=== PATIENT | female | born 1955 | race African-American/Black ===

== ENCOUNTER 2017-03-04 20:33 | Inpatient (IN) | payer OTHER, MEDICARE ==
[~2017-03-04] VITALS: Ht 162.6 cm; Wt 147.0 kg
[2017-03-04 20:36] VITALS: BP 201/87; PULSE 114; RESP 16; TEMP 98.9; O2SAT 97
[2017-03-04 23:00] VITALS: BP 187/84; PULSE 94; RESP 16; O2SAT 98
[2017-03-05] MEDS ORDERED: SIMV10TA PO (00:40)
[2017-03-05] MEDS ORDERED: PRED50 PO (00:40)
[2017-03-05] MEDS ORDERED: TRAM50TA PO (00:40)
[2017-03-05] MEDS ORDERED: HYDR12.57 PO (00:40)
[2017-03-05] MEDS ORDERED: CEPH500C PO (00:40)
[2017-03-05] MEDS ORDERED: LISI-515 PO (00:40)
[2017-03-05] MEDS ORDERED: SODIUM CHLORIDE 0.9% FLUSH 10 ML FLUSH IVF PRN (00:45)
[2017-03-05 01:10] VITALS: RESP 18; O2SAT 96
[2017-03-05 01:18] LABS: AUTOMATED NEUTROPHIL # 18.1 TH/MM3 (1.8-7.7); BASOPHIL # 0.1 TH/MM3 (0-0.2); BASOPHIL % 0.2 % (0.0-2.0); HEMATOCRIT 35.5 % (35.0-46.0); HEMO FLAGS DIFF FINAL; LYMPH % 7.2 % (9.0-44.0); LYMPHOCYTE # 1.5 TH/MM3 (1.0-4.8); MEAN CELL VOLUME 84.6 FL (80.0-100.0); MEAN CORPUSCULAR HEMOGLOBIN 27.5 PG (27.0-34.0); MEAN CORPUSCULAR HGB CONC 32.5 % (32.0-36.0); MONO % 6.2 % (0.0-8.0); NEUT % 86.4 % (16.0-70.0); PLATELET COUNT 318 TH/MM3 (150-450); RED BLOOD COUNT 4.19 MIL/MM3 (4.00-5.30); RED CELL DISTRIBUTION WIDTH 14.9 % (11.6-17.2)
[2017-03-05 01:28] LABS: BICARBONATE 26.9 MEQ/L (21.0-32.0); POTASSIUM 3.6 MEQ/L (3.5-5.1)
[2017-03-05] MEDS ORDERED: IOHEXOL 350 MG/ML 10 ML VIAL (for RAD DIAG) IV ONE (02:40)
[2017-03-05 03:00] VITALS: BP 185/82; PULSE 83; RESP 16; O2SAT 99
--- NOTE | 2017-03-05 03:24 | RADRPT ---
EXAM DATE/TIME: 03/05/2017 02:36 This report includes an Addendum and supersedes previous reports for this exam. [facility] COMPARISON: No previous studies available for comparison. INDICATIONS : Sore throat since last . IV CONTRAST: 80 cc Omnipaque 350 (iohexol) IV RADIATION DOSE: 43.63 CTDIvol (mGy) MEDICAL HISTORY : Hypertension. SURGICAL HISTORY : Tubal ligation. ENCOUNTER: Initial ACUITY: 1 week PAIN SCALE: 5/10 LOCATION: throat TECHNIQUE: Volumetric scanning of the neck was performed. Using automated exposure control and adjustment of e mA and/or kV according to patient size, radiation dose was kept as low as reasonably achievable to obtain optimal diagnostic quality images. FINDINGS: There is significant soft tissue swelling involving the right lateral wall of the oropharynx. There i s a focal area of decreased density consistent with a small abscess measuring 2.4 x 1.1 cm. There is narrowing of the lumen of the pharynx due to the extensive soft tissue swelling. Multiple mildly enla rged level II and level III cervical chain lymph nodes noted on the right. Bulky adenopathy not obser talita elsewhere. Major vascular structures are unremarkable. The right carotid artery is quite tortuous with the ICA coursing medially in a retropharyngeal location. Mucosal thickening is seen involving t he ethmoid air cells, sphenoid sinuses, and maxillary sinuses bilaterally. Air-fluid levels are seen within the maxillary sinuses bilaterally. CONCLUSION: 1. Extensive soft tissue swelling involving the right lateral wall of the oropharynx with a tear of p haryngeal abscess measuring 2.4 x 1.1 cm. 2. Note is made of a tortuous ICA on the right which courses in a retropharyngeal location. 3. Reactive lymphadenopathy on the right. 4. Acute bilateral maxillary sinusitis. Suman Laws Jr., MD on March 05, 2017 at 3:16 Board Certified Radiologist. This report was verified electronically. ADDENDUM: There is a typographical error in the #1 impression above. This should read "extensive soft tissue sw elling involving the right lateral wall of the oropharynx with a parapharyngeal abscess measuring 2.4 x 1.1 cm. " Suman Laws Jr., MD on March 05, 2017 at 5:08 Board Certified Radiologist. This report was verified electronically.
[2017-03-05] MEDS ORDERED: ENALAPRILAT 1.25 MG/ML VIAL IV PUSH PRN (04:15)
[2017-03-05] MEDS ORDERED: AMPICILLIN-SULBACTAM INJ 3 GM in SODIUM CHLORIDE 0.9% INJ 100 ML IV ONE (04:15)
[2017-03-05] MEDS ORDERED: ONDANSETRON HCL 4 MG/2 ML VIAL IV PUSH PRN (04:15)
[2017-03-05] MEDS ORDERED: SODIUM CHLOR 0.9% 1000 ML INJ 1,000 ML IV ONE (04:15)
--- NOTE | 2017-03-05 04:16 | PD ---
HPI Chief Complaint: ENT Complaint Time Seen by Provider: 00:17 Travel History International Travel<30 days: No Contact w/Intl Traveler<30days: No Traveled to known affect area: No History of Present Illness HPI Patient 62-year-old female presents emergency department for sore throat difficulty swallowing neck pain for the past 4-5 days. Patient states with her primary care provider was diagnosed with upper respiratory symptoms and indeed she's been having some cough and congestion and was started on Keflex. Patient states she's not been able take Keflex because it so painful to swallow. She denies any fevers denies any nausea vomiting chest pain shortness of breath. States she's never had something like this before. States is gradually getting worse. PFSH Past Medical History High Cholesterol: Yes Diminished Hearing: No Hypertension: Yes Respiratory: Yes (infection) ?: Not LMP: at 44 Menopausal: Yes Tubal Ligation: Yes Social History Alcohol Use: No Tobacco Use: No (never) Substance Use: No Allergies-Medications (Allergen,Severity, Reaction): Uncoded Allergies: solar (Allergy, Unknown, 03/04/17) Reported Meds & Prescriptions Reported Meds & Active Scripts Active Reported Tramadol (Tramadol HCl) 50 Mg Tab 50 Mg PO Q4H PRN Hydrochlorothiazide 12.5 Mg Cap 12.5 Mg PO DAILY Lisinopril 20 Mg Tab 20 Mg PO DAILY Prednisone 50 Mg Tab 50 Mg PO DAILY Simvastatin 10 Mg Tab 10 Mg PO HS Cephalexin 500 Mg Cap 500 Mg PO Q8H Review of Systems Except as stated in HPI: all other systems reviewed are Neg Physical Exam Narrative GENERAL: Well-developed well-nourished no apparent distress SKIN: Focused skin assessment warm/dry. HEAD: Atraumatic. Normocephalic. EYES: Pupils equal and round. No scleral icterus. No injection or drainage. ENT: TMs clear bilaterally, patient does have tenderness to palpation of the lymph nodes on the right anterior part of her neck. Her is 2 finger trismus. Posterior aspect of her oropharynx is not well visualized. No sublingual tenderness. There is no Brandon's crunch, no cellulitis of the anterior neck. Extremely poor dentition NECK: Trachea midline. No JVD. CARDIOVASCULAR: Regular rate and rhythm. No murmur appreciated. No murmurs gallops or rubs. RESPIRATORY: No accessory muscle use. Clear to auscultation. Breath sounds equal bilaterally. GASTROINTESTINAL: Abdomen soft, non-tender, nondistended. Hepatic and splenic margins not palpable. MUSCULOSKELETAL: No obvious deformities. No clubbing. No cyanosis. No edema. NEUROLOGICAL: Awake and alert. No obvious cranial nerve deficits. Motor grossly within normal limits. Normal speech. PSYCHIATRIC: Appropriate mood and affect; insight and judgment normal. Data Data Last Documented VS Vital Signs Date Time Temp Pulse Resp B/P Pulse Ox O2 Delivery O2 Flow Rate FiO2 03/05/17 01:10 18 96 Room Air 03/04/17 23:00 94 187/84 03/04/17 20:36 98.9 Orders Basic Metabolic Panel (Bmp) (03/05/17 00:38) Complete Blood Count With Diff (03/05/17 00:38) Blood Glucose (03/05/17 00:38) Ecg Monitoring (03/05/17 00:38) Iv Access Insert/Monitor (03/05/17 00:38) Oximetry (03/05/17 00:38) Sodium Chloride 0.9% Flush (Ns Flush) (03/05/17 00:45) Thyroid Stimulating Hormone (03/05/17 00:38) Ct Soft Tiss Neck W Iv Cont (03/05/17 ) Iohexol 350 Inj (Omnipaque 350 Inj) (03/05/17 02:40) Lactic Acid (03/05/17 03:40) Ampicillin-Sulbactam Inj (Unasyn Inj) (03/05/17 04:15) Sodium Chlor 0.9% 1000 Ml Inj (Ns 1000 M (03/05/17 04:15) Admit Order (Ed Use Only) (03/05/17 ) Diet Npo (03/05/17 Breakfast) Vital Signs (Adult) SAMANTHA.Q4H (03/05/17 04:13) Ampicillin-Sulbactam Inj (Unasyn Inj) (03/05/17 10:00) Ondansetron Inj (Zofran Inj) (03/05/17 04:15) Consult Ent (03/05/17 ) Complete Blood Count With Diff (03/06/17 06:00) Enalaprilat Inj (Vasotec Inj) (03/05/17 04:15) Sodium Chlor 0.9% 1000 Ml Inj (Ns 1000 M (03/05/17 04:15) Labs Laboratory Tests Test 03/05/17 03/05/17 00:49 03:53 White Blood Count 21.0 TH/MM3 Red Blood Count 4.19 MIL/MM3 Hemoglobin 11.5 GM/DL Hematocrit 35.5 % Mean Corpuscular Volume 84.6 FL Mean Corpuscular Hemoglobin 27.5 PG Mean Corpuscular Hemoglobin 32.5 % Concent Red Cell Distribution Width 14.9 % Platelet Count 318 TH/MM3 Mean Platelet Volume 8.4 FL Neutrophils (%) (Auto) 86.4 % Lymphocytes (%) (Auto) 7.2 % Monocytes (%) (Auto) 6.2 % Eosinophils (%) (Auto) 0.0 % Basophils (%) (Auto) 0.2 % Neutrophils # (Auto) 18.1 TH/MM3 Lymphocytes # (Auto) 1.5 TH/MM3 Monocytes # (Auto) 1.3 TH/MM3 Eosinophils # (Auto) 0.0 TH/MM3 Basophils # (Auto) 0.1 TH/MM3 CBC Comment DIFF FINAL Differential Comment Sodium Level 138 MEQ/L Potassium Level 3.6 MEQ/L Chloride Level 101 MEQ/L Carbon Dioxide Level 26.9 MEQ/L Anion Gap 10 MEQ/L Blood Urea Nitrogen 20 MG/DL Creatinine 0.77 MG/DL Estimat Glomerular Filtration 92 ML/MIN Rate Random Glucose 96 MG/DL Calcium Level 8.9 MG/DL Thyroid Stimulating Hormone 1.250 uIU/ML 3rd Gen Lactic Acid Level 0.6 mmol/L MDM Medical Decision Making Medical Screen Exam Complete: Yes Emergency Medical Condition: Yes Differential Diagnosis Tonsillar abscess, retropharyngeal abscess, URI, bronchitis, dental abscess. Narrative Course Patient was roomed in the emergency Department, notable physical findings are right-sided lymphadenopathy and trismus. Patient does appear to be protecting her airway quite pleasant. She was offered pain medicine several times in the emergency department and declined. Patient with her trismus needs consideration for neck or facial abscess. Last [address] 03/05/17 0000 Signed Impressions: Service Date/Time: February 02:36 - CONCLUSION: 1. Extensive soft tissue swelling involving the right lateral wall of the oropharynx with a tear of pharyngeal abscess measuring 2.4 x 1.1 cm. 2. Note is made of a tortuous ICA on the right which courses in a retropharyngeal location. 3. Reactive lymphadenopathy on the right. 4. Acute bilateral maxillary sinusitis. Suman Laws Jr., MD ADDENDUM: There is a typographical error in the #1 impression above. This should read extensive soft tissue swelling involving the right lateral wall of the oropharynx with a parapharyngeal abscess measuring 2.4 x 1.1 cm. Suman Laws Jr., MD Patient is tachycardic and does have an elevated white blood cell count 22,000 diagnostic for sepsis. There is no evidence of severe sepsis or septic shock. No indication therefore for aggressive fluid rehydration. She was given Unasyn in the emergency department. She will be admitted to Dr. Moss. Patient was discussed with Dr. Swartz. She is to remain nothing by mouth for now. Blood cultures were drawn and set aside prior to administration of antibiotics and will be sent off. Patient continues to protect her airway in the emergency department and appears nontoxic. Diagnosis Primary Impression: Sepsis Qualified Code: A41.9 - Sepsis, due to unspecified organism Additional Impression: Retropharyngeal abscess Admitting Information Admitting Physician Requests: Admit Condition: Stable Jos Wall MD Mar 05, 2017 04:15
[2017-03-05] MEDS: SODIUM CHLOR 0.9% 1000 ML INJ 1,000 ML IV SCH ×2 (05:16→14:15)
--- NOTE | 2017-03-05 05:35 | HHI.HP ---
[facility] Service [facility] Primary Care Physician Non-Staff Admission Diagnosis Sepsis, Retropharyngeal Abscess Diagnoses: (1) Sepsis Diagnosis: Principal (2) Retropharyngeal abscess Diagnosis: Principal Chief Complaint: pain to the right face Travel History International Travel<30 Days: No Contact w/Intl Traveler <30 Da: No Traveled to Known Affected Are: No History of Present Illness patient is a 62 y/o female who presented to ER with pain to the right face. she says that she's got the pain since last week. she then started to have some sore throat,and cough along with some pain to her right ear. she started to notice some swelling of the right face. she was seen by her PCP few days ago and prescribed antibiotic and prednisone however due to difficulty swallowing she just could take a few pills on Thursday and Thursday. she had some fever and chills at home. due to worsening pain and swelling she decided to come to ER. she says that she hasn't been able to take her home meds because of difficulty swallowing. Review of Systems Constitutional: COMPLAINS OF: Fever, Chills, DENIES: Weight loss, Night Sweats Eyes: DENIES: Blurred vision, Diplopia, Vision loss, Double Vision Ears, nose, mouth, throat: COMPLAINS OF: Throat pain, Ear Pain, DENIES: Tinnitus, Vertigo, Epistaxis Respiratory: DENIES: Apneas, Cough, Snoring, Wheezing, Hemoptysis, Sputum production, Shortness of breath Cardiovascular: DENIES: Chest pain, Palpitations, Syncope, Dyspnea on Exertion , PND, Lower Extremity Edema, Orthopnea, Claudication Gastrointestinal: COMPLAINS OF: Difficulty Swallowing, DENIES: Abdominal pain , Black stools, Bloody stools, Constipation, Diarrhea, Nausea, Vomiting, Anorexia Genitourinary: DENIES: Urinary frequency, Urgency, Hematuria, Dysuria Musculoskeletal: DENIES: Joint pain, Muscle aches, Stiffness, Joint Swelling Integumentary: DENIES: Rash Neurologic: DENIES: Abnormal gait, Headache, Localized weakness, Paresthesias, Seizures, Speech Problems, Tremor, Poor Balance Psychiatric: DENIES: Anxiety, Confusion, Mood changes, Depression, Hallucinations, Agitation, Suicidal Ideation, Homicidal Ideation, Delusions Past Family Social History Past Medical History hypertension dyslipidemia Past Surgical History knee surgery tubal ligation Reported Medications Tramadol (Tramadol HCl) 50 Mg Tab 50 Mg PO Q4H PRN Hydrochlorothiazide 12.5 Mg Cap 12.5 Mg PO DAILY Lisinopril 20 Mg Tab 20 Mg PO DAILY Prednisone 50 Mg Tab 50 Mg PO DAILY Simvastatin 10 Mg Tab 10 Mg PO HS Cephalexin 500 Mg Cap 500 Mg PO Q8H Allergies: Uncoded Allergies: solar (Allergy, Unknown, 03/04/17) Active Ordered Medications Current Medications Sodium Chloride (NS Flush) 2 ml UNSCH PRN IVF FLUSH AFTER USING IV ACCESS Last administered on 03/05/17 04:25; Start 03/05/17 at 00:45 Iohexol 80 ml 80 ml STK-MED ONCE IV Last administered on 03/05/17 02:40; Start 03/05/17 at 02:40; Stop 03/05/17 at 02:41; Status DC Ampicillin Sodium/ Sulbactam Sodium 3 gm/Sodium Chloride 100 ml @ 200 mls/hr ONCE ONCE IV Last administered on 03/05/17 04:24; Start 03/05/17 at 04:15; Stop 03/05/17 at 04:44; Status DC Sodium Chloride 1,000 ml @ 999 mls/hr BOLUS ONCE IV Last administered on 04:30; Start 03/05/17 at 04:15; Stop 03/05/17 at 05:15; Status DC Ampicillin Sodium/ Sulbactam Sodium/ Sodium Chloride (Unasyn Inj/NS Inj) 100 ml @ 200 mls/hr Q6H IV ; Start 03/05/17 at 10:00 Ondansetron HCl (Zofran Inj) 4 mg Q8HR PRN IV PUSH NAUSEA; Start 03/05/17 at 04: 15 Enalaprilat 1.25 mg 1.25 mg Q8H PRN IV PUSH SBP> OR = 180, DBP> OR = 100; Start 03/05/17 at 04:15 Sodium Chloride (NS 1000 ml Inj) 1,000 ml @ 100 mls/hr Q10H IV Last administered on 03/05/17 05:16; Start 03/05/17 at 04:15 Family History not relevant to this admission. Social History no smoking or drinking. Physical Exam Vital Signs Vital Signs Date Time Temp Pulse Resp B/P Pulse Ox O2 Delivery O2 Flow Rate FiO2 03/05/17 01:10 18 96 Room Air 03/04/17 23:00 94 16 187/84 98 Room Air 03/04/17 20:36 98.9 114 16 201/87 97 Room Air Physical Exam GENERAL: This is a well-nourished, well-developed patient, in no apparent distress. SKIN: No rashes, ecchymoses or lesions. Cool and dry. HEAD: swelling and tenderness over the right face EYES: Pupils equal round and reactive. Extraocular motions intact. No scleral icterus. No injection or drainage. ENT: Nose without bleeding, purulent drainage or septal hematoma. Throat without erythema, tonsillar hypertrophy or exudate. Uvula midline. Airway patent. NECK: Trachea midline. No JVD or lymphadenopathy. Supple, nontender, no meningeal signs. CARDIOVASCULAR: Regular rate and rhythm without murmurs, gallops, or rubs. RESPIRATORY: Clear to auscultation. Breath sounds equal bilaterally. No wheezes , rales, or rhonchi. GASTROINTESTINAL: Abdomen soft, non-tender, nondistended. No hepato-splenomegaly , or palpable masses. No guarding. MUSCULOSKELETAL: Extremities without clubbing, cyanosis, or edema. No joint tenderness, effusion, or edema noted. No calf tenderness. Negative Homans sign bilaterally. NEUROLOGICAL: Awake and alert. Cranial nerves II through XII intact. Motor and sensory grossly within normal limits. Five out of 5 muscle strength in all muscle groups. Normal speech. Laboratory Laboratory Tests Test 03/05/17 03/05/17 00:49 03:53 White Blood Count 21.0 Red Blood Count 4.19 Hemoglobin 11.5 Hematocrit 35.5 Mean Corpuscular Volume 84.6 Mean Corpuscular Hemoglobin 27.5 Mean Corpuscular Hemoglobin 32.5 Concent Red Cell Distribution Width 14.9 Platelet Count 318 Mean Platelet Volume 8.4 Neutrophils (%) (Auto) 86.4 Lymphocytes (%) (Auto) 7.2 Monocytes (%) (Auto) 6.2 Eosinophils (%) (Auto) 0.0 Basophils (%) (Auto) 0.2 Neutrophils # (Auto) 18.1 Lymphocytes # (Auto) 1.5 Monocytes # (Auto) 1.3 Eosinophils # (Auto) 0.0 Basophils # (Auto) 0.1 CBC Comment DIFF FINAL Differential Comment Sodium Level 138 Potassium Level 3.6 Chloride Level 101 Carbon Dioxide Level 26.9 Anion Gap 10 Blood Urea Nitrogen 20 Creatinine 0.77 Estimat Glomerular Filtration 92 Rate Random Glucose 96 Calcium Level 8.9 Thyroid Stimulating Hormone 1.250 3rd Gen Lactic Acid Level 0.6 Result Diagram: 03/05/17 0049 03/05/17 0049 Imaging Last Impressions Neck CT 03/05/17 0000 Signed Impressions: Service Date/Time: February 02:36 - CONCLUSION: 1. Extensive soft tissue swelling involving the right lateral wall of the oropharynx with a tear of pharyngeal abscess measuring 2.4 x 1.1 cm. 2. Note is made of a tortuous ICA on the right which courses in a retropharyngeal location. 3. Reactive lymphadenopathy on the right. 4. Acute bilateral maxillary sinusitis. Suman Laws Jr., MD ADDENDUM: There is a typographical error in the #1 impression above. This should read extensive soft tissue swelling involving the right lateral wall of the oropharynx with a parapharyngeal abscess measuring 2.4 x 1.1 cm. Suman Laws Jr., MD Assessment and Plan Assessment and Plan A/P - sepsis ( leukocytosis/ tachycardia ) due to Parapharyngeal abscess NPO for now and continue IV fluid-continue IV antibiotic and will consult ENT -hypertension; vasotec prn for now -dyslipidemia; resume home meds when able to take po -DVT prophylaxis with SCD's Discussed Condition With ER physician and the patient. Physician Certification 2 Midnight Certification Type: Admission for Inpatient Services Order for Inpatient Services The services are ordered in accordance with Medicare regulations or non- Medicare payer requirements, as applicable. In the case of services not specified as inpatient-only, they are appropriately provided as inpatient services in accordance with the 2-midnight benchmark. Estimated LOS (days): 2 days is the estimated time the patient will need to remain in the hospital, assuming treatment plan goals are met and no additional complications. Post-Hospital Plan: Home Problem Qualifiers (1) Sepsis: Qualified Code: A41.9 - Sepsis, due to unspecified organism Tom James MD Mar 05, 2017 05:35
[2017-03-05 06:00] VITALS: BP 176/83; PULSE 78; RESP 16; O2SAT 97
[2017-03-05] MEDS ORDERED: DEXAMETHASONE SOD PHOS 20 MG/5 ML VIAL IV PUSH ONE (06:30)
--- NOTE | 2017-03-05 07:22 | MB ---
cc: LOU RÍOS M.D. DATE OF CONSULTATION 03/05/2017 REASON FOR ENT CONSULTATION Right parapharyngeal abscess HISTORY OF PRESENT ILLNESS Rick Wilson is a 62-year-old woman in fairly good health. She reports a five-day history of progressive pain in her right throat, neck and face. She was seen by her primary care doctor and diagnosed with an upper respiratory infection and begun on prednisone and Keflex. However, she states due to the pain in the throat, she has been unable to take her medications including a blood pressure medication for the last three or four days. She presented to the emergency room late in the evening on March 04 complaining of the severe pain in the right throat and neck. She has no airway compromise, but she is unable to swallow. She has difficulty opening her mouth. PAST MEDICAL HISTORY Significant for: 1. Hypertension 2. High cholesterol PAST SURGICAL HISTORY She has had: 1. Knee surgery 2. Tubal ligation PREHOSPITAL MEDICATIONS Include: 1. Tramadol 2. Hydrochlorothiazide 3. Lisinopril 4. Prednisone 5. Simvastatin 6. Keflex ALLERGIES NISOLDIPINE PHYSICAL EXAM On examination, she is alert and cooperative. VITAL SIGNS: Her temperature is 99 degrees, pulse 114, respirations 16, BP 201/87, O2 sat 97% on room air. HEAD, EYES, NOSE, AND THROAT: Head is normocephalic and atraumatic. Face is normal. There is no edema. Oral cavity, teeth appear to be in fair condition. Tongue is normal. Unable to show her oropharynx beyond just the soft palate which shows marked swelling and erythema on the right side. Tonsils are not visible. NECK: Very tender in the right submandibular triangle and below the angle of the mandible, but there is no fluctuance. Range of motion is decreased. She has difficulty of rotation and flexion of her neck. EARS: Normal auricles, ear canals and tympanic membranes. LABORATORY White count 21,000. CT scan reveals a loculated abscess developing in the area of the right tonsil fossa extending down the right pharyngeal wall toward the pyriform sinus. There is compromise with narrowing of the airway. ASSESSMENT Right peritonsillar parapharyngeal abscess. PLAN Discussed these findings with the patient. Recommend we proceed as soon as practical to the operating room to drain this loculated abscess under general anesthesia. She is agreement and consent has been signed. She is n.p.o. MD VIBHA Whalen/SOPHY /6:49 AM /7:08 AM
[2017-03-05] MEDS ORDERED: MICROFIBRILLAR COLLAGEN HEMOSTAT 1 GM PKT ONE (08:00)
[2017-03-05] MEDS ORDERED: OXYMETAZOLINE HCL 0.05% 15 ML NASAL SPRAY ONE (08:00)
[2017-03-05] MEDS ORDERED: ACETAMINOPHEN 1000 MG/100 ML VIAL IV ONE (08:20)
[2017-03-05] MEDS ORDERED: fentaNYL CITRATE 250 MCG/5 ML AMP ONE (08:20)
[2017-03-05] MEDS ORDERED: MIDAZOLAM HCL 2 MG/2 ML VIAL ONE (08:20)
[2017-03-05] MEDS ORDERED: DEXAMETHASONE SOD PHOS 4 MG/ML VIAL ONE (08:20)
[2017-03-05] MEDS ORDERED: DICLOFENAC SODIUM 37.5 MG/ML VIAL IV PUSH ONE (08:20)
[2017-03-05] MEDS ORDERED: FAMOTIDINE 20 MG/2 ML VIAL ONE (08:20)
[2017-03-05] MEDS ORDERED: cefTRIAXone 1,000 MG/NS 100 ML IV ONE ×2 (09:15)
[2017-03-05] MEDS ORDERED: *RESP: ALBUTEROL 2.5 MG/3 ML NEB (PRN) PERIprocedural Use ONLY NEB ONE (09:27)
[2017-03-05] MEDS ORDERED: AMPICILLIN-SULBACTAM INJ 3 GM in SODIUM CHLORIDE 0.9% INJ 100 ML IV SCH (10:00)
[2017-03-05] MEDS: LACTATED RINGER'S 1000 ML INJ 1,000 ML IV SCH ×2 (10:20→22:25)
[2017-03-05] MEDS ORDERED: DO NOT ADM ANY ANTICOAGULANT DRUGS PRN (10:45)
[2017-03-05] MEDS: DEXAMETHASONE SOD PHOS 4 MG/ML VIAL IV SCH ×2 (11:58→17:56)
[2017-03-05] MEDS ORDERED: ONDANSETRON HCL 4 MG/2 ML VIAL IV PUSH ONE (12:00)
[2017-03-05] MEDS ORDERED: NEOSTIGMINE 3 MG/3 ML SYR IV ONE (12:00)
[2017-03-05] MEDS ORDERED: PROPOFOL 200 MG/20 ML AMP IV ONE (12:00)
[2017-03-05] MEDS: CLINDAMYCIN INJ 900 MG in SODIUM CHLORIDE 0.9% INJ 100 ML IV SCH ×2 (12:02→22:24)
--- NOTE | 2017-03-05 15:26 | HHI.PR ---
Subjective Remarks patient see post op in PACU waiting for a room. She has no complaints. Denied any pain or difficulty swallowing. Objective Vitals Vital Signs Date Time Temp Pulse Resp B/P Pulse Ox O2 Delivery O2 Flow Rate FiO2 03/05/17 15:00 85 17 131/75 99 Nasal Cannula 3 03/05/17 14:00 82 15 111/54 98 Nasal Cannula 3 03/05/17 13:00 90 16 127/66 99 Nasal Cannula 3 03/05/17 12:00 81 15 112/63 99 Nasal Cannula 3 03/05/17 11:30 85 14 121/62 99 Humidified 03/05/17 11:00 89 16 119/64 98 Humidified 03/05/17 10:30 85 14 109/64 97 Humidified 03/05/17 10:15 82 16 110/57 97 Humidified 03/05/17 10:00 87 13 128/67 95 Humidified 03/05/17 09:45 91 16 127/87 93 Humidified 03/05/17 09:30 90 14 137/81 93 Simple Mask 8 03/05/17 09:25 97.3 87 15 168/52 98 Simple Mask 8 03/05/17 06:00 78 16 176/83 97 Room Air 03/05/17 03:00 83 16 185/82 99 Room Air 03/05/17 01:10 18 96 Room Air 03/04/17 23:00 94 16 187/84 98 Room Air 03/04/17 20:36 98.9 114 16 201/87 97 Room Air I/O 03/04/17 03/04/17 03/04/17 03/05/17 03/05/17 03/05/17 07:00 15:00 23:00 07:00 15:00 23:00 Intake Total 600 ml 25 ml Output Total 25 ml 200 ml Balance 575 ml -175 ml Intake Oral 25 ml Other 600 ml Output Urine Total 200 ml Estimated Blood Loss 25 ml Result Diagram: 03/05/17 0049 03/05/17 0049 Imaging Last Impressions Neck CT 03/05/17 0000 Signed Impressions: Service Date/Time: February 02:36 - CONCLUSION: 1. Extensive soft tissue swelling involving the right lateral wall of the oropharynx with a tear of pharyngeal abscess measuring 2.4 x 1.1 cm. 2. Note is made of a tortuous ICA on the right which courses in a retropharyngeal location. 3. Reactive lymphadenopathy on the right. 4. Acute bilateral maxillary sinusitis. Suman Laws Jr., MD ADDENDUM: There is a typographical error in the #1 impression above. This should read extensive soft tissue swelling involving the right lateral wall of the oropharynx with a parapharyngeal abscess measuring 2.4 x 1.1 cm. Suman Laws Jr., MD Objective Remarks GENERAL: in NAD SKIN: Warm and dry. HEAD: Normocephalic. EYES: No scleral icterus. No injection or drainage. NECK: Supple, trachea midline. No JVD or lymphadenopathy. CARDIOVASCULAR: Regular rate and rhythm without murmurs, gallops, or rubs. RESPIRATORY: Breath sounds equal bilaterally. No accessory muscle use. GASTROINTESTINAL: Abdomen soft, non-tender, nondistended. MUSCULOSKELETAL: No cyanosis, or edema. BACK: Nontender without obvious deformity. No CVA tenderness. Medications and IVs Current Medications Sodium Chloride (NS Flush) 2 ml UNSCH PRN IVF FLUSH AFTER USING IV ACCESS Last administered on 03/05/17 04:25; Start 03/05/17 at 00:45 Iohexol 80 ml 80 ml STK-MED ONCE IV Last administered on 03/05/17 02:40; Start 03/05/17 at 02:40; Stop 03/05/17 at 02:41; Status DC Ampicillin Sodium/ Sulbactam Sodium 3 gm/Sodium Chloride 100 ml @ 200 mls/hr ONCE ONCE IV Last administered on 03/05/17 04:24; Start 03/05/17 at 04:15; Stop 03/05/17 at 04:44; Status DC Sodium Chloride 1,000 ml @ 999 mls/hr BOLUS ONCE IV Last administered on 04:30; Start 03/05/17 at 04:15; Stop 03/05/17 at 05:15; Status DC Ampicillin Sodium/ Sulbactam Sodium/ Sodium Chloride (Unasyn Inj/NS Inj) 100 ml @ 200 mls/hr Q6H IV ; Start 03/05/17 at 10:00; Stop 03/05/17 at 10:20; Status DC Ondansetron HCl (Zofran Inj) 4 mg Q8HR PRN IV PUSH NAUSEA; Start 03/05/17 at 04: 15 Enalaprilat 1.25 mg 1.25 mg Q8H PRN IV PUSH SBP> OR = 180, DBP> OR = 100; Start 03/05/17 at 04:15 Sodium Chloride (NS 1000 ml Inj) 1,000 ml @ 100 mls/hr Q10H IV Last administered on 03/05/17 05:16; Start 03/05/17 at 04:15 Dexamethasone Sodium Phosphate (Decadron Inj) 10 mg ONCE ONCE IV PUSH Last administered on 03/05/17 06:36; Start 03/05/17 at 06:30; Stop 03/05/17 at 06:31; Status DC Microfibriller Collagen Hemostat (Avitene Powder Pack) 1 gm STK-MED ONCE .ROUTE ; Start 03/05/17 at 08:00; Stop 03/05/17 at 08:12; Status DC Oxymetazoline HCl (Afrin 0.05% Wes [place]) 30 spray STK-MED ONCE .ROUTE ; Start 03/05/17 at 08:00; Stop 03/05/17 at 08:12; Status DC Acetaminophen (Ofirmev Inj) 1,000 mg STK-MED ONCE IV ; Start 03/05/17 at 08:20; Stop 03/05/17 at 08:21; Status DC Midazolam HCl (Versed Inj) 2 mg STK-MED ONCE .ROUTE ; Start 03/05/17 at 08:20; Stop 03/05/17 at 08:22; Status DC Fentanyl Citrate (fentaNYL INJ) 250 mcg STK-MED ONCE .ROUTE ; Start 03/05/17 at 08:20; Stop 03/05/17 at 08:22; Status DC Diclofenac Sodium (Dyloject Inj) 37.5 mg STK-MED ONCE IV PUSH ; Start 03/05/17 at 08:20; Stop 03/05/17 at 08:22; Status DC Dexamethasone Sodium Phosphate (Decadron Inj) 4 mg STK-MED ONCE .ROUTE ; Start 03/05/17 at 08:20; Stop 03/05/17 at 08:22; Status DC Famotidine 20 mg 20 mg STK-MED ONCE .ROUTE ; Start 03/05/17 at 08:20; Stop at 08:22; Status DC Ceftriaxone Sodium/Sodium Chloride (Rocephin Inj/NS Inj) 100 ml @ 200 mls/hr NOW ONCE IV Last administered on 03/05/17 09:15; Start 03/05/17 at 09:15; Stop 03/05/17 at 09:44; Status DC Albuterol Sulfate 2.5 mg 2.5 mg STK-MED ONCE NEB Last administered on 03/05/17 09:27; Start 03/05/17 at 09:27; Stop 03/05/17 at 09:28; Status DC Lactated Ringer's 1,000 ml @ 80 mls/hr [id number] IV Last administered on 10:20; Start 03/05/17 at 10:00 Ceftriaxone Sodium/Sodium Chloride (Rocephin Inj/NS Inj) 100 ml @ 200 mls/hr Q24H IV ; Start 03/05/17 at 21:00 Acetaminophen/ Hydrocodone Bitart (Hycet 325-7.5 Mg Liq) 15 ml Q4H PRN PO PAIN ; Start 03/05/17 at 09:45 Dexamethasone Sodium Phosphate 4 mg 4 mg Q6H IV Last administered on 03/05/17 11:58; Start 03/05/17 at 12:00 Clindamycin Phosphate/Sodium Chloride (Cleocin Inj/NS Inj) 106 ml @ 212 mls/hr Q8H IV Last administered on 03/05/17 12:02; Start 03/05/17 at 12:00 Miscellaneous Information ALL NURSING DEPARTME... UNSCH PRN .XX SEE LABEL COMMENTS; Start 03/05/17 at 10:45; Stop 03/06/17 at 10:44 A/P Problem List: (1) Sepsis ICD Code: A41.9 Status: Acute (2) Retropharyngeal abscess ICD Code: J39.0 Status: Acute Assessment and Plan Sepsis -with leukocytosis/ tachycardia due to Parapharyngeal abscess found on imaging. - s/p drain of loculated abscess by ENT hypertension -seemed to resolved so maybe due to pain. -on vasotec prn for now. Dyslipidemia - resume home meds when able to take po -DVT prophylaxis with SCD's Problem Qualifiers (1) Sepsis: Qualified Code: A41.9 - Sepsis, due to unspecified organism Reyna Enamorado MD Mar 05, 2017 15:26
[2017-03-05 16:00] VITALS: BP 136/63; PULSE 90; RESP 20; TEMP 96.1; O2SAT 95
[2017-03-05 17:20] VITALS: O2SAT 95
[2017-03-05 20:00] VITALS: BP 138/65; PULSE 71; RESP 20; TEMP 98.3; O2SAT 94
[2017-03-05] MEDS: cefTRIAXone 1,000 MG/NS 100 ML IV SCH ×2 (22:25)
[2017-03-06] VITALS: BP 137/71; PULSE 72; RESP 20; TEMP 96.6; O2SAT 98
[2017-03-06] MEDS: DEXAMETHASONE SOD PHOS 4 MG/ML VIAL IV SCH ×3 (00:14→11:10)
[2017-03-06] MEDS: SODIUM CHLOR 0.9% 1000 ML INJ 1,000 ML IV SCH ×2 (00:15→11:08)
[2017-03-06] MEDS: CLINDAMYCIN INJ 900 MG in SODIUM CHLORIDE 0.9% INJ 100 ML IV SCH ×3 (04:41→20:37)
[2017-03-06 05:29] VITALS: BP 139/71; PULSE 80; RESP 18; TEMP 96.7; O2SAT 98
[2017-03-06 06:56] LABS: AUTOMATED NEUTROPHIL # 13.4 TH/MM3 (1.8-7.7); BASOPHIL % 0.2 % (0.0-2.0); HEMATOCRIT 29.2 % (35.0-46.0); HEMO FLAGS DIFF FINAL; LYMPH % 6.7 % (9.0-44.0); MEAN CELL VOLUME 84.6 FL (80.0-100.0); MEAN CORPUSCULAR HEMOGLOBIN 27.7 PG (27.0-34.0); MEAN CORPUSCULAR HGB CONC 32.7 % (32.0-36.0); MONO % 3.6 % (0.0-8.0); NEUT % 89.5 % (16.0-70.0); PLATELET COUNT 335 TH/MM3 (150-450); RED BLOOD COUNT 3.45 MIL/MM3 (4.00-5.30); WHITE BLOOD COUNT 14.9 TH/MM3 (4.0-11.0)
[2017-03-06 08:00] VITALS: BP 137/60; PULSE 83; RESP 21; TEMP 96.6; O2SAT 98
[2017-03-06] MEDS: LACTATED RINGER'S 1000 ML INJ 1,000 ML IV SCH ×2 (11:00→20:46)
[2017-03-06] MEDS: ACETAMINOPHEN 325MG/HYDROcodone 7.5MG/15ML UDC PO PRN ×2 (11:10→20:38)
[2017-03-06 13:15] VITALS: O2SAT 98
[2017-03-06 16:00] VITALS: BP 114/61; PULSE 79; RESP 18; TEMP 95.7; O2SAT 96
--- NOTE | 2017-03-06 16:21 | HHI.PR ---
Subjective Remarks Follow-up with retropharyngeal abscess Patient stated that she has more swelling today and that this is causing the headache. Otherwise she has no other complaints. She remains afebrile. Objective Vitals Vital Signs Date Time Temp Pulse Resp B/P Pulse Ox O2 Delivery O2 Flow Rate FiO2 03/06/17 13:15 98 21 03/06/17 08:00 96.6 83 21 137/60 98 03/06/17 05:29 96.7 80 18 139/71 98 03/06/17 00:00 96.6 72 20 137/71 98 03/05/17 20:00 98.3 71 20 138/65 94 03/05/17 17:20 95 21 I/O 03/05/17 03/05/17 03/05/17 03/06/17 03/06/17 03/06/17 07:00 15:00 23:00 07:00 15:00 23:00 Intake Total 600 ml 25 ml 500 ml Output Total 25 ml 200 ml 0 ml Balance 575 ml -175 ml 500 ml 0 ml Intake Oral 25 ml IV Total 500 ml Other 600 ml Output Urine Total 200 ml Stool Total 0 ml Estimated Blood Loss 25 ml # Voids 1 2 # Bowel Movements 0 Result Diagram: 03/06/1737 03/06/17536 Objective Remarks GENERAL: in NAD SKIN: Warm and dry. HEAD: Right-sided facial swelling. No erythema noted. EYES: No scleral icterus. No injection or drainage. NECK: Supple, trachea midline. No JVD or lymphadenopathy. CARDIOVASCULAR: Regular rate and rhythm without murmurs, gallops, or rubs. RESPIRATORY: Breath sounds equal bilaterally. No accessory muscle use. GASTROINTESTINAL: Abdomen soft, non-tender, nondistended. MUSCULOSKELETAL: No cyanosis, or edema. BACK: Nontender without obvious deformity. No CVA tenderness. Medications and IVs Current Medications Sodium Chloride (NS Flush) 2 ml UNSCH PRN IVF FLUSH AFTER USING IV ACCESS Last administered on 03/05/17 04:25; Start 03/05/17 at 00:45 Iohexol 80 ml 80 ml STK-MED ONCE IV Last administered on 03/05/17 02:40; Start 03/05/17 at 02:40; Stop 03/05/17 at 02:41; Status DC Ampicillin Sodium/ Sulbactam Sodium 3 gm/Sodium Chloride 100 ml @ 200 mls/hr ONCE ONCE IV Last administered on 03/05/17 04:24; Start 03/05/17 at 04:15; Stop 03/05/17 at 04:44; Status DC Sodium Chloride 1,000 ml @ 999 mls/hr BOLUS ONCE IV Last administered on 04:30; Start 03/05/17 at 04:15; Stop 03/05/17 at 05:15; Status DC Ampicillin Sodium/ Sulbactam Sodium/ Sodium Chloride (Unasyn Inj/NS Inj) 100 ml @ 200 mls/hr Q6H IV ; Start 03/05/17 at 10:00; Stop 03/05/17 at 10:20; Status DC Ondansetron HCl (Zofran Inj) 4 mg Q8HR PRN IV PUSH NAUSEA; Start 03/05/17 at 04: 15 Enalaprilat 1.25 mg 1.25 mg Q8H PRN IV PUSH SBP> OR = 180, DBP> OR = 100; Start 03/05/17 at 04:15 Sodium Chloride (NS 1000 ml Inj) 1,000 ml @ 100 mls/hr Q10H IV Last administered on 03/06/17 11:08; Start 03/05/17 at 04:15 Dexamethasone Sodium Phosphate (Decadron Inj) 10 mg ONCE ONCE IV PUSH Last administered on 03/05/17 06:36; Start 03/05/17 at 06:30; Stop 03/05/17 at 06:31; Status DC Microfibriller Collagen Hemostat (Avitene Powder Pack) 1 gm STK-MED ONCE .ROUTE ; Start 03/05/17 at 08:00; Stop 03/05/17 at 08:12; Status DC Oxymetazoline HCl (Afrin 0.05% Wes [place]) 30 spray STK-MED ONCE .ROUTE ; Start 03/05/17 at 08:00; Stop 03/05/17 at 08:12; Status DC Acetaminophen (Ofirmev Inj) 1,000 mg STK-MED ONCE IV ; Start 03/05/17 at 08:20; Stop 03/05/17 at 08:21; Status DC Midazolam HCl (Versed Inj) 2 mg STK-MED ONCE .ROUTE ; Start 03/05/17 at 08:20; Stop 03/05/17 at 08:22; Status DC Fentanyl Citrate (fentaNYL INJ) 250 mcg STK-MED ONCE .ROUTE ; Start 03/05/17 at 08:20; Stop 03/05/17 at 08:22; Status DC Diclofenac Sodium (Dyloject Inj) 37.5 mg STK-MED ONCE IV PUSH ; Start 03/05/17 at 08:20; Stop 03/05/17 at 08:22; Status DC Dexamethasone Sodium Phosphate (Decadron Inj) 4 mg STK-MED ONCE .ROUTE ; Start 03/05/17 at 08:20; Stop 03/05/17 at 08:22; Status DC Famotidine 20 mg 20 mg STK-MED ONCE .ROUTE ; Start 03/05/17 at 08:20; Stop at 08:22; Status DC Ceftriaxone Sodium/Sodium Chloride (Rocephin Inj/NS Inj) 100 ml @ 200 mls/hr NOW ONCE IV Last administered on 03/05/17 09:15; Start 03/05/17 at 09:15; Stop 03/05/17 at 09:44; Status DC Albuterol Sulfate 2.5 mg 2.5 mg STK-MED ONCE NEB Last administered on 03/05/17 09:27; Start 03/05/17 at 09:27; Stop 03/05/17 at 09:28; Status DC Lactated Ringer's 1,000 ml @ 80 mls/hr [id number] IV Last administered on 10:20; Start 03/05/17 at 10:00 Ceftriaxone Sodium/Sodium Chloride (Rocephin Inj/NS Inj) 100 ml @ 200 mls/hr Q24H IV Last administered on 03/05/17 22:25; Start 03/05/17 at 21:00 Acetaminophen/ Hydrocodone Bitart (Hycet 325-7.5 Mg Liq) 15 ml Q4H PRN PO PAIN Last administered on 03/06/17 11:10; Start 03/05/17 at 09:45 Dexamethasone Sodium Phosphate 4 mg 4 mg Q6H IV Last administered on 03/06/17 11:10; Start 03/05/17 at 12:00; Stop 03/06/17 at 12:39; Status DC Clindamycin Phosphate/Sodium Chloride (Cleocin Inj/NS Inj) 106 ml @ 212 mls/hr Q8H IV Last administered on 03/06/17t 11:09; Start 03/05/17 at 12:00 Miscellaneous Information ALL NURSING DEPARTME... UNSCH PRN .XX SEE LABEL COMMENTS; Start 03/05/17 at 10:45; Stop 03/06/17 at 10:44; Status DC A/P Problem List: (1) Sepsis ICD Code: A41.9 Status: Acute (2) Retropharyngeal abscess ICD Code: J39.0 Status: Acute Assessment and Plan Sepsis -I resolved. -with leukocytosis/ tachycardia due to Parapharyngeal abscess found on imaging. - s/p drain of loculated abscess by ENT on 03/05/2017 -Patient was initially on Unasyn but is now on Rocephin per ENT. Parapharyngeal abscess -See treatment as above. hypertension -seemed to resolved so maybe due to pain. -on vasotec prn for now. Dyslipidemia - Continue home meds when able to take po -DVT prophylaxis with SCD's Discharge Planning Patient continues to require IV antibiotics per ENT. Once cleared by ENT patient to be discharge. Problem Qualifiers (1) Sepsis: Qualified Code: A41.9 - Sepsis, due to unspecified organism Reyna Enamorado MD Mar 06, 2017 16:21
[2017-03-06 20:00] VITALS: BP 156/84; PULSE 83; RESP 20; TEMP 97.1; O2SAT 100
[2017-03-06] MEDS: cefTRIAXone 1,000 MG/NS 100 ML IV SCH ×2 (20:37)
[2017-03-07] VITALS (7 sets, daily range): BP systolic 114–152; BP diastolic 55–77; PULSE 66–83; RESP 18–24; TEMP 96.4–97.7; O2SAT 94–98
[2017-03-07] MEDS: CLINDAMYCIN INJ 900 MG in SODIUM CHLORIDE 0.9% INJ 100 ML IV SCH ×3 (04:47→20:35)
[2017-03-07] MEDS: ACETAMINOPHEN 325MG/HYDROcodone 7.5MG/15ML UDC PO PRN ×3 (11:25→20:38)
[2017-03-07] MEDS: LACTATED RINGER'S 1000 ML INJ 1,000 ML IV SCH (11:29)
--- NOTE | 2017-03-07 15:41 | HHI.PR ---
Subjective Remarks f/u for infection. patient stated she still has right facial swelling. Tolerated clear liquid diet. she stated pain medication helped controlled. pain. She stated Dr. Swartz saw her in the morning and stated possibility she might need more drainage. she remains afebrile. Objective Vitals Vital Signs Date Time Temp Pulse Resp B/P Pulse Ox O2 Delivery O2 Flow Rate FiO2 03/07/17 12:32 96.4 73 18 126/61 95 03/07/17 08:00 97.5 82 20 148/67 98 03/07/17 04:00 96.8 77 20 119/66 96 03/07/17 00:00 97.0 66 20 152/77 96 03/06/17 21:38 18 03/06/17 20:00 97.1 83 20 156/84 100 03/06/17 19:10 21 03/06/17 16:00 95.7 79 18 114/61 96 I/O 03/06/17 03/06/17 03/06/17 03/07/17 03/07/17 03/07/17 07:00 15:00 23:00 07:00 15:00 23:00 Intake Total 500 ml 480 ml 120 ml Output Total 0 ml Balance 500 ml 0 ml 480 ml 120 ml Intake Oral 480 ml 120 ml IV Total 500 ml Stool Total 0 ml # Voids 1 2 1 0 2 # Bowel Movements 0 0 0 2 Result Diagram: 03/06/17 0537 03/06/17 0537 Objective Remarks GENERAL: in NAD SKIN: Warm and dry. HEAD: Right-sided facial swelling. No erythema noted. EYES: No scleral icterus. No injection or drainage. NECK: Supple, trachea midline. No JVD or lymphadenopathy. CARDIOVASCULAR: Regular rate and rhythm without murmurs, gallops, or rubs. RESPIRATORY: Breath sounds equal bilaterally. No accessory muscle use. GASTROINTESTINAL: Abdomen soft, non-tender, nondistended. MUSCULOSKELETAL: No cyanosis, or edema. BACK: Nontender without obvious deformity. No CVA tenderness. Medications and IVs Current Medications Sodium Chloride (NS Flush) 2 ml UNSCH PRN IVF FLUSH AFTER USING IV ACCESS Last administered on 03/05/17 04:25; Start 03/05/17 at 00:45 Iohexol 80 ml 80 ml STK-MED ONCE IV Last administered on 03/05/17 02:40; Start 03/05/17 at 02:40; Stop 03/05/17 at 02:41; Status DC Ampicillin Sodium/ Sulbactam Sodium 3 gm/Sodium Chloride 100 ml @ 200 mls/hr ONCE ONCE IV Last administered on 03/05/17 04:24; Start 03/05/17 at 04:15; Stop 03/05/17 at 04:44; Status DC Sodium Chloride 1,000 ml @ 999 mls/hr BOLUS ONCE IV Last administered on 04:30; Start 03/05/17 at 04:15; Stop 03/05/17 at 05:15; Status DC Ampicillin Sodium/ Sulbactam Sodium/ Sodium Chloride (Unasyn Inj/NS Inj) 100 ml @ 200 mls/hr Q6H IV ; Start 03/05/17 at 10:00; Stop 03/05/17 at 10:20; Status DC Ondansetron HCl (Zofran Inj) 4 mg Q8HR PRN IV PUSH NAUSEA; Start 03/05/17 at 04: 15 Enalaprilat 1.25 mg 1.25 mg Q8H PRN IV PUSH SBP> OR = 180, DBP> OR = 100; Start 03/05/17 at 04:15 Sodium Chloride (NS 1000 ml Inj) 1,000 ml @ 100 mls/hr Q10H IV Last administered on 03/06/17 11:08; Start 03/05/17 at 04:15; Stop 03/06/17 at 16:22; Status DC Dexamethasone Sodium Phosphate (Decadron Inj) 10 mg ONCE ONCE IV PUSH Last administered on 03/05/17 06:36; Start 03/05/17 at 06:30; Stop 03/05/17 at 06:31; Status DC Microfibriller Collagen Hemostat (Avitene Powder Pack) 1 gm STK-MED ONCE .ROUTE ; Start 03/05/17 at 08:00; Stop 03/05/17 at 08:12; Status DC Oxymetazoline HCl (Afrin 0.05% Wes [place]) 30 spray STK-MED ONCE .ROUTE ; Start 03/05/17 at 08:00; Stop 03/05/17 at 08:12; Status DC Acetaminophen (Ofirmev Inj) 1,000 mg STK-MED ONCE IV ; Start 03/05/17 at 08:20; Stop 03/05/17 at 08:21; Status DC Midazolam HCl (Versed Inj) 2 mg STK-MED ONCE .ROUTE ; Start 03/05/17 at 08:20; Stop 03/05/17 at 08:22; Status DC Fentanyl Citrate (fentaNYL INJ) 250 mcg STK-MED ONCE .ROUTE ; Start 03/05/17 at 08:20; Stop 03/05/17 at 08:22; Status DC Diclofenac Sodium (Dyloject Inj) 37.5 mg STK-MED ONCE IV PUSH ; Start 03/05/17 at 08:20; Stop 03/05/17 at 08:22; Status DC Dexamethasone Sodium Phosphate (Decadron Inj) 4 mg STK-MED ONCE .ROUTE ; Start 03/05/17 at 08:20; Stop 03/05/17 at 08:22; Status DC Famotidine 20 mg 20 mg STK-MED ONCE .ROUTE ; Start 03/05/17 at 08:20; Stop at 08:22; Status DC Ceftriaxone Sodium/Sodium Chloride (Rocephin Inj/NS Inj) 100 ml @ 200 mls/hr NOW ONCE IV Last administered on 03/05/17 09:15; Start 03/05/17 at 09:15; Stop 03/05/17 at 09:44; Status DC Albuterol Sulfate 2.5 mg 2.5 mg STK-MED ONCE NEB Last administered on 03/05/17 09:27; Start 03/05/17 at 09:27; Stop 03/05/17 at 09:28; Status DC Lactated Ringer's 1,000 ml @ 80 mls/hr [id number] IV Last administered on 20:46; Start 03/05/17 at 10:00 Ceftriaxone Sodium/Sodium Chloride (Rocephin Inj/NS Inj) 100 ml @ 200 mls/hr Q24H IV Last administered on 03/06/17 20:37; Start 03/05/17 at 21:00 Acetaminophen/ Hydrocodone Bitart (Hycet 325-7.5 Mg Liq) 15 ml Q4H PRN PO PAIN Last administered on 03/07/17 15:02; Start 03/05/17 at 09:45 Dexamethasone Sodium Phosphate 4 mg 4 mg Q6H IV Last administered on 03/06/17 11:10; Start 03/05/17 at 12:00; Stop 03/06/17 at 12:39; Status DC Clindamycin Phosphate/Sodium Chloride (Cleocin Inj/NS Inj) 106 ml @ 212 mls/hr Q8H IV Last administered on 03/07/17 11:25; Start 03/05/17 at 12:00 Miscellaneous Information ALL NURSING DEPARTME... UNSCH PRN .XX SEE LABEL COMMENTS; Start 03/05/17 at 10:45; Stop 03/06/17 at 10:44; Status DC A/P Problem List: (1) Sepsis ICD Code: A41.9 Status: Acute (2) Retropharyngeal abscess ICD Code: J39.0 Status: Acute Assessment and Plan Sepsis -resolved. -with leukocytosis/tachycardia due to Parapharyngeal abscess found on imaging. - s/p drain of loculated abscess by ENT on 03/05/2017 -Patient was initially on Unasyn but is now on Rocephin and clindamycin per ENT. Parapharyngeal abscess -See treatment as above. hypertension -seemed to resolved so maybe due to pain. -on vasotec prn for now. Dyslipidemia - Continue home meds when able to take po. -DVT prophylaxis with SCD's Discharge Planning Patient continues to require IV antibiotics per ENT. Once cleared by ENT patient to be discharge. Problem Qualifiers (1) Sepsis: Qualified Code: A41.9 - Sepsis, due to unspecified organism Reyna Enamorado MD Mar 07, 2017 15:41
[2017-03-07] MEDS: cefTRIAXone 1,000 MG/NS 100 ML IV SCH ×2 (21:25)
[2017-03-08] VITALS (7 sets, daily range): BP systolic 111–135; BP diastolic 56–67; PULSE 64–77; RESP 17–22; TEMP 96.5–97.8; O2SAT 93–100
[2017-03-08] MEDS: ACETAMINOPHEN 325MG/HYDROcodone 7.5MG/15ML UDC PO PRN ×2 (01:04→19:57)
[2017-03-08] MEDS: LACTATED RINGER'S 1000 ML INJ 1,000 ML IV SCH ×2 (01:05→12:10)
[2017-03-08] MEDS: CLINDAMYCIN INJ 900 MG in SODIUM CHLORIDE 0.9% INJ 100 ML IV SCH ×3 (04:10→19:57)
[2017-03-08 08:24] LABS: HEMATOCRIT 29.3 % (35.0-46.0); MEAN CELL VOLUME 84.2 FL (80.0-100.0); MEAN CORPUSCULAR HEMOGLOBIN 28.1 PG (27.0-34.0); MEAN CORPUSCULAR HGB CONC 33.4 % (32.0-36.0); PLATELET COUNT 371 TH/MM3 (150-450); RED BLOOD COUNT 3.48 MIL/MM3 (4.00-5.30); RED CELL DISTRIBUTION WIDTH 15.4 % (11.6-17.2); REVIEW FLAG FINAL; WHITE BLOOD COUNT 11.8 TH/MM3 (4.0-11.0)
[2017-03-08 08:39] LABS: BICARBONATE 26.2 MEQ/L (21.0-32.0); POTASSIUM 3.3 MEQ/L (3.5-5.1)
--- NOTE | 2017-03-08 10:27 | HHI.PR ---
Subjective Remarks Follow-up for retroperitoneal abscess Patient continues to complain of pain. He stated that warm blankets help with the pain better than the pain medication. Denies any shortness of breathing. She remains afebrile. No other complaints. Objective Vitals Vital Signs Date Time Temp Pulse Resp B/P Pulse Ox O2 Delivery O2 Flow Rate FiO2 03/08/17 09:20 99 Nasal Cannula 21 03/08/17 08:08 97.2 77 19 135/64 96 03/08/17 04:00 96.7 73 20 111/67 93 03/08/17 00:00 97.7 64 22 120/67 96 03/07/17 20:00 97.7 74 24 114/55 97 03/07/17 16:00 96.5 83 18 132/67 97 03/07/17 12:32 96.4 73 18 126/61 95 I/O 03/07/17 03/07/17 03/07/17 03/08/17 03/08/17 03/08/17 07:00 15:00 23:00 07:00 15:00 23:00 Intake Total 120 ml 840 ml 480 ml Balance 120 ml 840 ml 480 ml Intake Oral 120 ml 840 ml IV Total 480 ml # Voids 0 5 2 3 1 # Bowel Movements 0 4 Result Diagram: 03/08/17 0547 03/08/17 0547 Objective Remarks GENERAL: in NAD SKIN: Warm and dry. HEAD: Right-sided facial swelling. No erythema noted. EYES: No scleral icterus. No injection or drainage. NECK: Supple, trachea midline. No JVD or lymphadenopathy. CARDIOVASCULAR: Regular rate and rhythm without murmurs, gallops, or rubs. RESPIRATORY: Breath sounds equal bilaterally. No accessory muscle use. GASTROINTESTINAL: Abdomen soft, non-tender, nondistended. MUSCULOSKELETAL: No cyanosis, or edema. BACK: Nontender without obvious deformity. No CVA tenderness. Medications and IVs Current Medications Sodium Chloride (NS Flush) 2 ml UNSCH PRN IVF FLUSH AFTER USING IV ACCESS Last administered on 03/05/17 04:25; Start 03/05/17 at 00:45 Iohexol 80 ml 80 ml STK-MED ONCE IV Last administered on 03/05/17 02:40; Start 03/05/17 at 02:40; Stop 03/05/17 at 02:41; Status DC Ampicillin Sodium/ Sulbactam Sodium 3 gm/Sodium Chloride 100 ml @ 200 mls/hr ONCE ONCE IV Last administered on 03/05/17 04:24; Start 03/05/17 at 04:15; Stop 03/05/17 at 04:44; Status DC Sodium Chloride 1,000 ml @ 999 mls/hr BOLUS ONCE IV Last administered on 04:30; Start 03/05/17 at 04:15; Stop 03/05/17 at 05:15; Status DC Ampicillin Sodium/ Sulbactam Sodium/ Sodium Chloride (Unasyn Inj/NS Inj) 100 ml @ 200 mls/hr Q6H IV ; Start 03/05/17 at 10:00; Stop 03/05/17 at 10:20; Status DC Ondansetron HCl (Zofran Inj) 4 mg Q8HR PRN IV PUSH NAUSEA; Start 03/05/17 at 04: 15 Enalaprilat 1.25 mg 1.25 mg Q8H PRN IV PUSH SBP> OR = 180, DBP> OR = 100; Start 03/05/17 at 04:15 Sodium Chloride (NS 1000 ml Inj) 1,000 ml @ 100 mls/hr Q10H IV Last administered on 03/06/17 11:08; Start 03/05/17 at 04:15; Stop 03/06/17 at 16:22; Status DC Dexamethasone Sodium Phosphate (Decadron Inj) 10 mg ONCE ONCE IV PUSH Last administered on 03/05/17 06:36; Start 03/05/17 at 06:30; Stop 03/05/17 at 06:31; Status DC Microfibriller Collagen Hemostat (Avitene Powder Pack) 1 gm STK-MED ONCE .ROUTE ; Start 03/05/17 at 08:00; Stop 03/05/17 at 08:12; Status DC Oxymetazoline HCl (Afrin 0.05% Wes [place]) 30 spray STK-MED ONCE .ROUTE ; Start 03/05/17 at 08:00; Stop 03/05/17 at 08:12; Status DC Acetaminophen (Ofirmev Inj) 1,000 mg STK-MED ONCE IV ; Start 03/05/17 at 08:20; Stop 03/05/17 at 08:21; Status DC Midazolam HCl (Versed Inj) 2 mg STK-MED ONCE .ROUTE ; Start 03/05/17 at 08:20; Stop 03/05/17 at 08:22; Status DC Fentanyl Citrate (fentaNYL INJ) 250 mcg STK-MED ONCE .ROUTE ; Start 03/05/17 at 08:20; Stop 03/05/17 at 08:22; Status DC Diclofenac Sodium (Dyloject Inj) 37.5 mg STK-MED ONCE IV PUSH ; Start 03/05/17 at 08:20; Stop 03/05/17 at 08:22; Status DC Dexamethasone Sodium Phosphate (Decadron Inj) 4 mg STK-MED ONCE .ROUTE ; Start 03/05/17 at 08:20; Stop 03/05/17 at 08:22; Status DC Famotidine 20 mg 20 mg STK-MED ONCE .ROUTE ; Start 03/05/17 at 08:20; Stop at 08:22; Status DC Ceftriaxone Sodium/Sodium Chloride (Rocephin Inj/NS Inj) 100 ml @ 200 mls/hr NOW ONCE IV Last administered on 03/05/17 09:15; Start 03/05/17 at 09:15; Stop 03/05/17 at 09:44; Status DC Albuterol Sulfate 2.5 mg 2.5 mg STK-MED ONCE NEB Last administered on 03/05/17 09:27; Start 03/05/17 at 09:27; Stop 03/05/17 at 09:28; Status DC Lactated Ringer's 1,000 ml @ 80 mls/hr [id number] IV Last administered on 01:05; Start 03/05/17 at 10:00 Ceftriaxone Sodium/Sodium Chloride (Rocephin Inj/NS Inj) 100 ml @ 200 mls/hr Q24H IV Last administered on 03/07/17 21:25; Start 03/05/17 at 21:00 Acetaminophen/ Hydrocodone Bitart (Hycet 325-7.5 Mg Liq) 15 ml Q4H PRN PO PAIN Last administered on 03/08/17 01:04; Start 03/05/17 at 09:45 Dexamethasone Sodium Phosphate 4 mg 4 mg Q6H IV Last administered on 03/06/17 11:10; Start 03/05/17 at 12:00; Stop 03/06/17 at 12:39; Status DC Clindamycin Phosphate/Sodium Chloride (Cleocin Inj/NS Inj) 106 ml @ 212 mls/hr Q8H IV Last administered on 03/08/17t 04:10; Start 03/05/17 at 12:00 Miscellaneous Information ALL NURSING DEPARTME... UNSCH PRN .XX SEE LABEL COMMENTS; Start 03/05/17 at 10:45; Stop 03/06/17 at 10:44; Status DC A/P Problem List: (1) Sepsis ICD Code: A41.9 Status: Acute (2) Retropharyngeal abscess ICD Code: J39.0 Status: Acute Assessment and Plan Sepsis -resolved. -with leukocytosis/tachycardia due to Parapharyngeal abscess found on imaging. -s/p drain of loculated abscess by ENT on 03/05/2017 -Patient was initially on Unasyn but is now on Rocephin and clindamycin per ENT. Parapharyngeal abscess -See treatment as above. hypertension -seemed to resolved so maybe due to pain. -on vasotec prn for now. Dyslipidemia - Continue home meds when able to take po. -DVT prophylaxis with SCD's Discharge Planning Patient continues to require IV antibiotics per ENT. Once cleared by ENT patient to be discharge. Problem Qualifiers (1) Sepsis: Qualified Code: A41.9 - Sepsis, due to unspecified organism Reyna Enamorado MD Mar 08, 2017 10:27
[2017-03-08] MEDS ORDERED: IOHEXOL 350 MG/ML 10 ML VIAL (for RAD DIAG) IV ONE (12:04)
--- NOTE | 2017-03-08 12:56 | RADRPT ---
EXAM DATE/TIME: 03/08/2017 11:56 [place] COMPARISON: CT SOFT TISSUE NECK W CONTRAST, March 05, 2017, 2:36. INDICATIONS : Follow up right parapharyngeal abscess. IV CONTRAST: 93 cc Omnipaque 350 (iohexol) IV RADIATION DOSE: 44.77 CTDIvol (mGy) MEDICAL HISTORY : Hypertension. Cardiovascular disease SURGICAL HISTORY : None. ENCOUNTER: Subsequent ACUITY: 3 days PAIN SCALE: 5/10 LOCATION: Right neck TECHNIQUE: Volumetric scanning of the neck was performed. Using automated exposure control and a djustment of the mA and/or kV according to patient size, radiation dose was kept as low as reasonably achievable to obtain optimal diagnostic quality images. FINDINGS: There is interval development of submucosal air along the right parapharyngeal soft tissues and longus coli muscle consistent with recent instrumentation and drainage of the previously identified a bscess. There are persistent inflammatory changes identified within the parapharyngeal fat and displa cement of the right lateral wall of the oropharynx without evidence of significant residual abscess. The adjacent vascular structures demonstrate normal enhancement without evidence of thrombosis. There are layering air fluid levels identified within the bilateral maxillary sinuses, sphenoid sinuses and ethmoid air cells. The imaged portion of the frontal sinuses are clear. Stable level II and 3 lymphadenopathy, reactive. Imaged lung is clear. CONCLUSION: There has been interval drainage of the right-sided parapharyngeal abscess with no si gnificant residual abscess present. Persistent soft tissue edema and prominent which mildly narrows t he airway. No evidence of vascular compromise. Reactive right-sided lymphadenopathy. Angelique Watt MD on March 08, 2017 at 12:44 Board Certified Radiologist. This report was verified electronically.
[2017-03-08] MEDS: cefTRIAXone 1,000 MG/NS 100 ML IV SCH ×2 (20:39)
--- NOTE | 2017-03-08 22:27 | MP ---
cc: LOU SWARTZ M.D. DATE OF SURGERY 03/05/[address] Lou Swartz PREOPERATIVE DIAGNOSIS Right peritonsillar and parapharyngeal abscess. POSTOPERATIVE DIAGNOSIS Right peritonsillar and parapharyngeal abscess. OPERATION PERFORMED Incision and drainage of right peritonsillar and parapharyngeal abscess. INDICATION The indications are documented in the inpatient consultation of March 05, 2017 DESCRIPTION OF OPERATION The patient was taken to OR #9 and placed in the supine position. Following induction of general anesthesia and intubation a shoulder roll, a Randy head drape and a McIvor mouth gag were put in place. Inspection of the right pharynx revealed extensive edema and erythema from the level of the soft palate down to the pyriform sinus. There was a large remnant of tonsil present in the left inferior pole of tonsil fossa extending into the hypopharynx. There was pus draining from a crypt in the tonsil remnant on this side. Pressure was applied over the right side of the pharynx expressing pus from this opening in the tonsil. When this was completed using a 22 gauge spinal needle numerous cannulations were made into the edematous tissue of the right oral and hypopharynx. A few areas additional purulence was obtained but there was no large cavity of pus identified from the level of the soft palate down to the hypopharyngeal wall. When this was completed the mouth gag was removed and the procedure was terminated. The patient was reversed from anesthesia and taken to recovery in good condition. No complications. Blood loss was 60 ml. ADDENDUM In recovery the patient had difficulty clearing her airway and maintaining saturation. At this time approximately 1/2 hour after completion of the procedure flexible fiberoptic nasopharyngoscopy was completed which showed clear glottis with no sign of blood in the hypopharynx or larynx. There was a clot of blood adherent to the tonsil remnant on the right side. This was removed using a Yankauer suction immediately clearing the airway. MD VIBHA Whalen/KK /7:52 PM /10:20 PM
[2017-03-09] VITALS (7 sets, daily range): BP systolic 133–182; BP diastolic 60–88; PULSE 71–79; RESP 18–20; TEMP 96.9–97.8; O2SAT 92–98
[2017-03-09] MEDS: LACTATED RINGER'S 1000 ML INJ 1,000 ML IV SCH ×2 (00:47→12:49)
[2017-03-09] MEDS: CLINDAMYCIN INJ 900 MG in SODIUM CHLORIDE 0.9% INJ 100 ML IV SCH ×3 (04:13→21:52)
[2017-03-09 07:26] LABS: HEMATOCRIT 31.6 % (35.0-46.0); MEAN CELL VOLUME 84.9 FL (80.0-100.0); MEAN CORPUSCULAR HEMOGLOBIN 27.6 PG (27.0-34.0); MEAN CORPUSCULAR HGB CONC 32.5 % (32.0-36.0); PLATELET COUNT 352 TH/MM3 (150-450); RED BLOOD COUNT 3.72 MIL/MM3 (4.00-5.30); RED CELL DISTRIBUTION WIDTH 15.4 % (11.6-17.2); REVIEW FLAG FINAL; WHITE BLOOD COUNT 11.5 TH/MM3 (4.0-11.0)
[2017-03-09 07:55] LABS: BICARBONATE 30.1 MEQ/L (21.0-32.0); POTASSIUM 3.2 MEQ/L (3.5-5.1)
[2017-03-09] MEDS: ACETAMINOPHEN 325MG/HYDROcodone 7.5MG/15ML UDC PO PRN ×2 (09:11→21:53)
[2017-03-09] MEDS ORDERED: DEXAMETHASONE SOD PHOS 20 MG/5 ML VIAL IV PUSH ONE (10:00)
[2017-03-09] MEDS ORDERED: FLUCONAZOLE 200 MG TAB PO ONE (10:45)
--- NOTE | 2017-03-09 15:51 | HHI.PR ---
Objective Vitals Vital Signs Date Time Temp Pulse Resp B/P Pulse Ox O2 Delivery O2 Flow Rate FiO2 03/09/17 12:37 96.9 73 20 182/88 97 03/09/17 08:26 97.4 77 20 134/60 93 03/09/17 04:00 97.6 71 18 161/73 92 03/09/17 00:00 97.6 76 18 133/83 94 03/08/17 20:00 97.8 74 18 133/60 100 03/08/17 16:17 96.5 76 17 116/56 100 I/O 03/08/17 03/08/17 03/08/17 03/09/17 03/09/17 03/09/17 07:00 15:00 23:00 07:00 15:00 23:00 Intake Total 480 ml 240 ml 480 ml 310 ml Balance 480 ml 240 ml 480 ml 310 ml Intake Oral 240 ml 480 ml IV Total 480 ml 310 ml # Voids 3 1 1 3 Result Diagram: 03/09/1729 03/09/17628 Objective Remarks GENERAL: in NAD SKIN: Warm and dry. HEAD: Right-sided facial swelling. No erythema noted. EYES: No scleral icterus. No injection or drainage. NECK: Supple, trachea midline. No JVD or lymphadenopathy. CARDIOVASCULAR: Regular rate and rhythm without murmurs, gallops, or rubs. RESPIRATORY: Breath sounds equal bilaterally. No accessory muscle use. GASTROINTESTINAL: Abdomen soft, non-tender, nondistended. MUSCULOSKELETAL: No cyanosis, or edema. BACK: Nontender without obvious deformity. No CVA tenderness. A/P Problem List: (1) Sepsis ICD Code: A41.9 Status: Acute (2) Retropharyngeal abscess ICD Code: J39.0 Status: Acute Assessment and Plan Sepsis -resolved. -with leukocytosis/tachycardia due to Parapharyngeal abscess found on imaging. Parapharyngeal abscess Right peritonsillar and parapharyngeal abscess.-s/p drain of loculated abscess by ENT on 03/05/2017 -Patient was initially on Unasyn but is now on Rocephin and clindamycin per ENT. -s/p Incision and drainage of right peritonsillar and parapharyngeal abscess on 03/08/16 -CT scan on 4/9 showed no abscess but just swelling. hypertension -seemed to resolved so maybe due to pain. -on vasotec prn for now. Dyslipidemia - Continue home meds when able to take po. -DVT prophylaxis with SCD's Discharge Planning If patient continues to well possible discharge tomorrow per ENT. Problem Qualifiers (1) Sepsis: Qualified Code: A41.9 - Sepsis, due to unspecified organism Reyna Enamorado MD Mar 09, 2017 15:51
[2017-03-09] MEDS: cefTRIAXone 1,000 MG/NS 100 ML IV SCH ×2 (22:55)
[2017-03-10 00:42] VITALS: BP 143/90; PULSE 77; RESP 18; TEMP 97.2; O2SAT 99
[2017-03-10] MEDS: LACTATED RINGER'S 1000 ML INJ 1,000 ML IV SCH (02:42)
[2017-03-10] MEDS: CLINDAMYCIN INJ 900 MG in SODIUM CHLORIDE 0.9% INJ 100 ML IV SCH ×3 (03:54→22:34)
[2017-03-10 05:09] VITALS: BP 131/63; PULSE 61; RESP 18; TEMP 97.8; O2SAT 95
[2017-03-10] MEDS: ACETAMINOPHEN 325MG/HYDROcodone 7.5MG/15ML UDC PO PRN ×2 (08:25→21:18)
[2017-03-10 09:53] LABS: HEMATOCRIT 31.6 % (35.0-46.0); MEAN CELL VOLUME 84.7 FL (80.0-100.0); MEAN CORPUSCULAR HEMOGLOBIN 27.4 PG (27.0-34.0); MEAN CORPUSCULAR HGB CONC 32.4 % (32.0-36.0); PLATELET COUNT 414 TH/MM3 (150-450); RED BLOOD COUNT 3.73 MIL/MM3 (4.00-5.30); RED CELL DISTRIBUTION WIDTH 15.2 % (11.6-17.2); REVIEW FLAG FINAL; WHITE BLOOD COUNT 15.4 TH/MM3 (4.0-11.0)
[2017-03-10 10:23] LABS: BICARBONATE 26.4 MEQ/L (21.0-32.0); POTASSIUM 3.3 MEQ/L (3.5-5.1)
[2017-03-10] MEDS ORDERED: HYDR1SOL3 PO (10:42)
--- NOTE | 2017-03-10 10:47 | HHI.PR ---
Subjective Remarks Follow-up for retropharyngeal abscess and peritonsillar abscess Patient stated that pain improved drastically and swelling has improved. Denied any shortness of breathing. Patient stated pain is controlled. She remains afebrile. Objective Vitals Vital Signs Date Time Temp Pulse Resp B/P Pulse Ox O2 Delivery O2 Flow Rate FiO2 03/10/17 05:09 97.8 61 18 131/63 95 03/10/17 00:42 97.2 77 18 143/90 99 03/09/17 20:55 97.8 71 18 138/71 98 03/09/17 20:40 98 Nasal Cannula 21 03/09/17 15:52 97.8 79 20 156/71 95 03/09/17 12:37 96.9 73 20 182/88 97 I/O 03/09/17 03/09/17 03/09/17 03/10/17 03/10/17 03/10/17 07:00 15:00 23:00 07:00 15:00 23:00 Intake Total 310 ml 960 ml 264 ml Balance 310 ml 960 ml 264 ml Intake Oral 960 ml IV Total 310 ml 264 ml # Voids 3 3 3 # Bowel Movements 1 Result Diagram: 03/10/17 0816 03/10/17 0816 Objective Remarks GENERAL: in NAD SKIN: Warm and dry. HEAD: Right-sided mild facial swelling that has improved drastically. No erythema noted. EYES: No scleral icterus. No injection or drainage. NECK: Supple, trachea midline. No JVD or lymphadenopathy. CARDIOVASCULAR: Regular rate and rhythm without murmurs, gallops, or rubs. RESPIRATORY: Breath sounds equal bilaterally. No accessory muscle use. GASTROINTESTINAL: Abdomen soft, non-tender, nondistended. MUSCULOSKELETAL: No cyanosis, or edema. BACK: Nontender without obvious deformity. No CVA tenderness. Medications and IVs Current Medications Sodium Chloride (NS Flush) 2 ml UNSCH PRN IVF FLUSH AFTER USING IV ACCESS Last administered on 03/05/17 04:25; Start 03/05/17 at 00:45 Iohexol 80 ml 80 ml STK-MED ONCE IV Last administered on 03/05/17 02:40; Start 03/05/17 at 02:40; Stop 03/05/17 at 02:41; Status DC Ampicillin Sodium/ Sulbactam Sodium 3 gm/Sodium Chloride 100 ml @ 200 mls/hr ONCE ONCE IV Last administered on 03/05/17 04:24; Start 03/05/17 at 04:15; Stop 03/05/17 at 04:44; Status DC Sodium Chloride 1,000 ml @ 999 mls/hr BOLUS ONCE IV Last administered on 04:30; Start 03/05/17 at 04:15; Stop 03/05/17 at 05:15; Status DC Ampicillin Sodium/ Sulbactam Sodium/ Sodium Chloride (Unasyn Inj/NS Inj) 100 ml @ 200 mls/hr Q6H IV ; Start 03/05/17 at 10:00; Stop 03/05/17 at 10:20; Status DC Ondansetron HCl (Zofran Inj) 4 mg Q8HR PRN IV PUSH NAUSEA; Start 03/05/17 at 04: 15 Enalaprilat 1.25 mg 1.25 mg Q8H PRN IV PUSH SBP> OR = 180, DBP> OR = 100 Last administered on 03/10/17 08:23; Start 03/05/17 at 04:15 Sodium Chloride (NS 1000 ml Inj) 1,000 ml @ 100 mls/hr Q10H IV Last administered on 03/06/17 11:08; Start 03/05/17 at 04:15; Stop 03/06/17 at 16:22; Status DC Dexamethasone Sodium Phosphate (Decadron Inj) 10 mg ONCE ONCE IV PUSH Last administered on 03/05/17 06:36; Start 03/05/17 at 06:30; Stop 03/05/17 at 06:31; Status DC Microfibriller Collagen Hemostat (Avitene Powder Pack) 1 gm STK-MED ONCE .ROUTE ; Start 03/05/17 at 08:00; Stop 03/05/17 at 08:12; Status DC Oxymetazoline HCl (Afrin 0.05% [place]) 30 spray STK-MED ONCE .ROUTE ; Start 03/05/17 at 08:00; Stop 03/05/17 at 08:12; Status DC Acetaminophen (Ofirmev Inj) 1,000 mg STK-MED ONCE IV ; Start 03/05/17 at 08:20; Stop 03/05/17 at 08:21; Status DC Midazolam HCl (Versed Inj) 2 mg STK-MED ONCE .ROUTE ; Start 03/05/17 at 08:20; Stop 03/05/17 at 08:22; Status DC Fentanyl Citrate (fentaNYL INJ) 250 mcg STK-MED ONCE .ROUTE ; Start 03/05/17 at 08:20; Stop 03/05/17 at 08:22; Status DC Diclofenac Sodium (Dyloject Inj) 37.5 mg STK-MED ONCE IV PUSH ; Start 03/05/17 at 08:20; Stop 03/05/17 at 08:22; Status DC Dexamethasone Sodium Phosphate (Decadron Inj) 4 mg STK-MED ONCE .ROUTE ; Start 03/05/17 at 08:20; Stop 03/05/17 at 08:22; Status DC Famotidine 20 mg 20 mg STK-MED ONCE .ROUTE ; Start 03/05/17 at 08:20; Stop at 08:22; Status DC Ceftriaxone Sodium/Sodium Chloride (Rocephin Inj/NS Inj) 100 ml @ 200 mls/hr NOW ONCE IV Last administered on 03/05/17 09:15; Start 03/05/17 at 09:15; Stop 03/05/17 at 09:44; Status DC Albuterol Sulfate 2.5 mg 2.5 mg STK-MED ONCE NEB Last administered on 03/05/17 09:27; Start 03/05/17 at 09:27; Stop 03/05/17 at 09:28; Status DC Lactated Ringer's 1,000 ml @ 80 mls/hr [id number] IV Last administered on 12:49; Start 03/05/17 at 10:00 Ceftriaxone Sodium/Sodium Chloride (Rocephin Inj/NS Inj) 100 ml @ 200 mls/hr Q24H IV Last administered on 03/09/17 22:55; Start 03/05/17 at 21:00 Acetaminophen/ Hydrocodone Bitart (Hycet 325-7.5 Mg Liq) 15 ml Q4H PRN PO PAIN Last administered on 03/10/17 08:25; Start 03/05/17 at 09:45 Dexamethasone Sodium Phosphate 4 mg 4 mg Q6H IV Last administered on 03/06/17 11:10; Start 03/05/17 at 12:00; Stop 03/06/17 at 12:39; Status DC Clindamycin Phosphate/Sodium Chloride (Cleocin Inj/NS Inj) 106 ml @ 212 mls/hr Q8H IV Last administered on 03/10/17 03:54; Start 03/05/17 at 12:00 Miscellaneous Information ALL NURSING DEPARTME... UNSCH PRN .XX SEE LABEL COMMENTS; Start 03/05/17 at 10:45; Stop 03/06/17 at 10:44; Status DC Iohexol (Omnipaque 350 Inj) 93 ml STK-MED ONCE IV Last administered on 12:04; Start 03/08/17 at 12:04; Stop 03/08/17 at 12:05; Status DC Dexamethasone Sodium Phosphate (Decadron Inj) 10 mg ONCE ONCE IV PUSH Last administered on 03/09/17 11:42; Start 03/09/17 at 10:00; Stop 03/09/17 at 10:01 ; Status DC Fluconazole (Diflucan) 200 mg ONCE ONCE PO Last administered on 03/09/17 11: 42; Start 03/09/17 at 10:45; Stop 03/09/17 at 10:46; Status DC A/P Problem List: (1) Sepsis ICD Code: A41.9 Status: Acute (2) Retropharyngeal abscess ICD Code: J39.0 Status: Acute Assessment and Plan Sepsis -resolved. -with leukocytosis/tachycardia due to Parapharyngeal abscess found on imaging. Parapharyngeal abscess Right peritonsillar and parapharyngeal abscess.-s/p drain of loculated abscess by ENT on 03/05/2017 -Patient was initially on Unasyn but is now on Rocephin and clindamycin per ENT. -s/p Incision and drainage of right peritonsillar and parapharyngeal abscess on 03/08/16 -CT scan on 03/08 showed no abscess but just swelling. -Clinically patient is improving drastically. -Pending recommendation from Dr. Swartz in regards to IV antibiotics and discharge. hypertension -seemed to resolved so maybe due to pain. -on vasotec prn for now. Dyslipidemia - Continue home meds when able to take po. -DVT prophylaxis with SCD's Discharge Planning Pending recommendations from Dr. Swartz in regards to discharge. Patient continues to be on IV antibiotics. Problem Qualifiers (1) Sepsis: Qualified Code: A41.9 - Sepsis, due to unspecified organism Reyna Enamorado MD Mar 10, 2017 10:47
[2017-03-10 12:51] VITALS: BP 133/60; PULSE 66; RESP 20; TEMP 95.8
[2017-03-10 20:40] VITALS: BP 143/71; PULSE 65; RESP 18; TEMP 97.4; O2SAT 99
[2017-03-10] MEDS: cefTRIAXone 1,000 MG/NS 100 ML IV SCH ×2 (21:19)
[2017-03-10 23:44] VITALS: BP 133/73; PULSE 68; RESP 18; TEMP 97.5; O2SAT 97
[2017-03-11] MEDS: CLINDAMYCIN INJ 900 MG in SODIUM CHLORIDE 0.9% INJ 100 ML IV SCH ×2 (03:23→13:26)
[2017-03-11] MEDS: ACETAMINOPHEN 325MG/HYDROcodone 7.5MG/15ML UDC PO PRN (03:23)
[2017-03-11 04:21] VITALS: BP 103/59; PULSE 66; RESP 18; TEMP 97.5; O2SAT 93
[2017-03-11 07:13] VITALS: BP 124/60; PULSE 71; RESP 18; TEMP 96.6; O2SAT 99
[2017-03-11 11:15] VITALS: BP 127/61; PULSE 70; RESP 18; TEMP 97.4; O2SAT 97
[2017-03-11] MEDS ORDERED: CEFD300C PO (13:18)
--- NOTE | 2017-03-11 13:19 | HHI.DCPOC ---
Discharge Care Plan Diagnosis: (1) Retropharyngeal abscess (2) Sepsis (3) Peritonsillar abscess Goals to Promote Your Health * To prevent worsening of your condition and complications * To maintain your health at the optimal level Directions to Meet Your Goals Take your medications as prescribed Follow your dietary instruction Follow activity as directed Keep your appointments as scheduled Take your immunizations and boosters as scheduled If your symptoms worsen call your PCP, if no PCP go to Urgent Care Center or Emergency Room Smoking is Dangerous to Your Health. Avoid second hand smoke Call the 24-hour hour crisis hotline for domestic abuse at Reyna Enamorado MD Mar 11, 2017 13:19
--- NOTE | 2017-03-11 13:19 | HHI.DS ---
Discharge Summary Admission Date Mar 05, 2017 at 04:16 Admitting Diagnosis Sepsis, Retropharyngeal Abscess (1) Sepsis ICD Code: A41.9 Diagnosis: Principal (2) Retropharyngeal abscess ICD Code: J39.0 Diagnosis: Principal Brief History - From Admission patient is a 62 y/o female who presented to ER with pain to the right face. she says that she's got the pain since last week. she then started to have some sore throat,and cough along with some pain to her right ear. she started to notice some swelling of the right face. she was seen by her PCP few days ago and prescribed antibiotic and prednisone however due to difficulty swallowing she just could take a few pills on Thursday and Thursday. she had some fever and chills at home. due to worsening pain and swelling she decided to come to ER. she says that she hasn't been able to take her home meds because of difficulty swallowing. CBC/BMP: 03/10/17 0816 03/10/17 0816 Significant Findings Laboratory Tests Test 03/09/17 03/10/17 06:29 08:16 White Blood Count 11.5 TH/MM3 15.4 TH/MM3 (4.0-11.0) (4.0-11.0) Red Blood Count 3.72 MIL/MM3 3.73 MIL/MM3 (4.00-5.30) (4.00-5.30) Hemoglobin 10.3 GM/DL 10.2 GM/DL (11.6-15.3) (11.6-15.3) Hematocrit 31.6 % 31.6 % (35.0-46.0) (35.0-46.0) Potassium Level 3.2 MEQ/L 3.3 MEQ/L (3.5-5.1) (3.5-5.1) Calcium Level 7.9 MG/DL 8.4 MG/DL (8.5-10.1) (8.5-10.1) Random Glucose 120 MG/DL (74-106) PE at Discharge GENERAL: in NAD SKIN: Warm and dry. HEAD: Right-sided mild facial swelling that has improved drastically. No erythema noted. EYES: No scleral icterus. No injection or drainage. NECK: Supple, trachea midline. No JVD or lymphadenopathy. CARDIOVASCULAR: Regular rate and rhythm without murmurs, gallops, or rubs. RESPIRATORY: Breath sounds equal bilaterally. No accessory muscle use. GASTROINTESTINAL: Abdomen soft, non-tender, nondistended. MUSCULOSKELETAL: No cyanosis, or edema. BACK: Nontender without obvious deformity. No CVA tenderness. Reyna Enamorado MD Mar 11, 2017 13:19
--- NOTE | 2017-03-11 15:52 | HHI.DS ---
Discharge Summary Admission Date Mar 05, 2017 at 04:16 Discharge Date: Mar 11, 2017 Admitting Diagnosis Sepsis, Retropharyngeal Abscess (1) Sepsis ICD Code: A41.9 Diagnosis: Principal (2) Retropharyngeal abscess ICD Code: J39.0 Diagnosis: Principal (3) Peritonsillar abscess ICD Code: J36 Diagnosis: Principal Procedures See hospital course. Brief History - From Admission patient is a 62 y/o female who presented to ER with pain to the right face. she says that she's got the pain since last week. she then started to have some sore throat,and cough along with some pain to her right ear. she started to notice some swelling of the right face. she was seen by her PCP few days ago and prescribed antibiotic and prednisone however due to difficulty swallowing she just could take a few pills on Thursday and Thursday. she had some fever and chills at home. due to worsening pain and swelling she decided to come to ER. she says that she hasn't been able to take her home meds because of difficulty swallowing. CBC/BMP: 03/10/17 0816 03/10/17 0816 Significant Findings Laboratory Tests Test 03/09/17 03/10/17 06:29 08:16 White Blood Count 11.5 TH/MM3 15.4 TH/MM3 (4.0-11.0) (4.0-11.0) Red Blood Count 3.72 MIL/MM3 3.73 MIL/MM3 (4.00-5.30) (4.00-5.30) Hemoglobin 10.3 GM/DL 10.2 GM/DL (11.6-15.3) (11.6-15.3) Hematocrit 31.6 % 31.6 % (35.0-46.0) (35.0-46.0) Potassium Level 3.2 MEQ/L 3.3 MEQ/L (3.5-5.1) (3.5-5.1) Calcium Level 7.9 MG/DL 8.4 MG/DL (8.5-10.1) (8.5-10.1) Random Glucose 120 MG/DL (74-106) Imaging Last Impressions Neck CT 03/08/17 1023 Signed Impressions: Service Date/Time: Wednesday, March 08, 2017 11:56 - CONCLUSION: There has been interval drainage of the right-sided parapharyngeal abscess with no significant residual abscess present. Persistent soft tissue edema and prominent which mildly narrows the airway. No evidence of vascular compromise. Reactive right-sided lymphadenopathy. Angelique Watt MD PE at Discharge GENERAL: in NAD SKIN: Warm and dry. HEAD: Right-sided mild facial swelling that has improved drastically. No erythema noted. EYES: No scleral icterus. No injection or drainage. NECK: Supple, trachea midline. No JVD or lymphadenopathy. CARDIOVASCULAR: Regular rate and rhythm without murmurs, gallops, or rubs. RESPIRATORY: Breath sounds equal bilaterally. No accessory muscle use. GASTROINTESTINAL: Abdomen soft, non-tender, nondistended. MUSCULOSKELETAL: No cyanosis, or edema. BACK: Nontender without obvious deformity. No CVA tenderness. Pt update on day of discharge Follow-up for peritonsillar and retropharyngeal abscess Patient states she is doing well. She is tolerating her by mouth intake. She remains afebrile. Denies any chance of breathing. Patient has no other complaints. Hospital Course Sepsis -with leukocytosis/tachycardia due to Parapharyngeal abscess found on imaging. -See treatment as below. Parapharyngeal abscess Right peritonsillar and parapharyngeal abscess. -s/p drain of loculated abscess by ENT on 03/05/2017 -Patient was initially on Unasyn but is now on Rocephin and clindamycin per ENT. -s/p Incision and drainage of right peritonsillar and parapharyngeal abscess on 03/08/16 -CT scan on 03/08 showed no abscess but just swelling. -Clinically patient is improving drastically. -Patient was switched to cefdinir 300 mg PO BID X 10 day with follow-up with Dr. Swartz in 2 weeks. hypertension -seemed to resolved so maybe due to pain. -on vasotec prn for now. Dyslipidemia - Continue home meds when able to take po. Pt Condition on Discharge: Good Discharge Disposition: Discharge Home Discharge Time: <= 30 minutes Discharge Instructions DIET: Follow Instructions for: As Tolerated, No Restrictions Activities you can perform: Regular-No Restrictions Follow up Referrals: Ear Nose Throat - [address] Swartz PCP Follow-up - 1 Week New Medications: Cefdinir (Cefdinir) 300 Mg Cap 300 MG PO BID Infection Days 10 Ref 0 CAP Hydrocodone-Acetaminophen Liq (Hydrocodone-Acetaminophen Liq) 7.5-325 Mg/15 Ml Soln 15 ML PO Q4H PRN PAIN #250 Ref 0 ML Reyna Enamorado MD Mar 11, 2017 15:52
== END 2017-03-11 16:30 | disposition home or self-care (01) | DRG 854 ==
LOC: NEPC 20:33 → NEDA 03-05 04:16 → N05A 03-05 15:50
PROVIDERS: ADMIT Family Medicine; ATTEND Family Medicine
PROC: 0CJY8ZZ Inspection of Mouth and Throat, Via Natural or Artificial Opening Endoscopic (ICD-10-PCS; 2017-03-05)
PROC: 0C9M0ZZ Drainage of Pharynx, Open Approach (ICD-10-PCS; principal; 2017-03-05 08:22)
DX: A41.9 Sepsis, unspecified organism (principal); J39.0 Retropharyngeal and parapharyngeal abscess; E78.00 Pure hypercholesterolemia, unspecified; I10 Essential (primary) hypertension; E78.5 Hyperlipidemia, unspecified
CPT/HCPCS: 70491; 76937; 80048; 82948; 83605; 84443; 85025; 85027; 87040; 94664; J0131; J0295; J0696; J1100; J1130; J2250; J2405; J2710; J3010; J7030; J7120; J7613; Q9967

== ENCOUNTER 2017-10-17 13:40 | Emergency (ER) | payer OTHER, MEDICAID ==
[~2017-10-17] VITALS: Ht 162.6 cm; Wt 120.0 kg
[~2017-10-17 13:40] MED LIST: CEFD300C PO; CEPH500C PO; HYDR12.57 PO; HYDR1SOL3 PO; LISI-515 PO; PRED50 PO; SIMV10TA PO; TRAM50TA PO
[2017-10-17 13:45] VITALS: BP 124/58; PULSE 99; RESP 18; TEMP 97.8; O2SAT 100
[2017-10-17] MEDS ORDERED: POTA10LI10 PO (14:02)
[2017-10-17] MEDS ORDERED: OS-CTAB3 PO (14:02)
--- NOTE | 2017-10-17 14:33 | PD ---
HPI Chief Complaint: Pain: Acute or Chronic Time Seen by Provider: 14:04 Travel History International Travel<30 days: No Contact w/Intl Traveler<30days: No Traveled to known affect area: No History of Present Illness HPI 62-year-old female presents to the emergency department complaining of right leg and back pain for approximately 2 months. States the pain has been increasing so she came in today. Her pain starts in her lower back and states it radiates to her right leg and occasionally down to the toes. Patient has been using salonpas 3-4 times daily without relief. States ibuprofen upsets her stomach and she was advised not to take narcotics per her primary care physician for pain. She has a history of high blood pressure and apparently low potassium. Patient denies saddle anesthesia, loss of bowel or bladder function, IV drug use, fever, chills, IV drug use. Patient is fairly immobile, denies recent travel or coagulopathy. Patient denies any other cardiac or pulmonary issues. PFSH Past Medical History Hx Anticoagulant Therapy: No Arthritis: Yes ("from neck down") Asthma: No Autoimmune Disease: No Heart Rhythm Problems: No Cancer: No Cardiovascular Problems: No High Cholesterol: Yes (on medication) Chemotherapy: No Chest Pain: No Congestive Heart Failure: No COPD: No Cerebrovascular Accident: No Diabetes: No Diminished Hearing: No Endocrine: No GERD: No Genitourinary: No Hiatal Hernia: No Hypertension: Yes Immune Disorder: No Kidney Stones: No Musculoskeletal: Yes Neurologic: No Psychiatric: No Reproductive: No Respiratory: No Migraines: No Radiation Therapy: No Renal Failure: No Seizures: No Sickle Cell Disease: No Sleep Apnea: No Thyroid Disease: No Ulcer: Yes (in my early 30's) ?: Not Menopausal: Yes Tubal Ligation: Yes Past Surgical History Abdominal Surgery: No AICD: No Arteriovenous Shunt: No Cardiac Surgery: No Ear Surgery: No Endocrine Surgery: No Eye Surgery: No Genitourinary Surgery: No Gynecologic Surgery: Yes (tubal ligation) Hysterectomy: No Insulin Pump: No Joint Replacement: Yes (R knee) Oral Surgery: No Pacemaker: No Thoracic Surgery: No Other Surgery: Yes (tubal ligation, R knee sx) Social History Alcohol Use: No Tobacco Use: No (never) Substance Use: No Allergies-Medications (Allergen,Severity, Reaction): Coded Allergies: nisoldipine (Verified Allergy, Unknown, 10/17/17) Reported Meds & Prescriptions Reported Meds & Active Scripts Active Medrol Dosepak (Methylprednisolone) 4 Mg Dspk 4 Mg PO DIRECTED Per Pharmacist direction Reported Os-Wilian Calcium + D3 (Calcium Carbonate-Cholecalciferol) 500-200 Mg-Unit Tab 1 Tab PO DAILY Potassium Chloride Liq (Potassium Chloride) 40 Meq/15 Ml Soln 40 Meq PO DAILY Hydrochlorothiazide 12.5 Mg Cap 12.5 Mg PO DAILY Lisinopril 20 Mg Tab 20 Mg PO DAILY Simvastatin 10 Mg Tab 10 Mg PO HS Review of Systems Except as stated in HPI: all other systems reviewed are Neg Physical Exam Narrative GENERAL: Pleasant, well-developed, well-nourished in no apparent distress SKIN: Focused skin assessment warm/dry. Redundant tissue HEAD: Atraumatic. Normocephalic. EYES: Pupils equal and round. No scleral icterus. No injection or drainage. ENT: No nasal bleeding or discharge. Mucous membranes pink and moist. NECK: Trachea midline. No JVD. CARDIOVASCULAR: Regular rate and rhythm. No murmur appreciated. RESPIRATORY: No accessory muscle use. Clear to auscultation. Breath sounds equal bilaterally. MUSCULOSKELETAL: No obvious deformities. No clubbing. No cyanosis. No edema. BACK: No CVA tenderness. No rash. No point tenderness on palpation of the spine. TTP to the sacroiliac region with accompanying muscle spasms Right leg-negative Homans, leg edematous with tenderness palpation of the upper anterior thigh. NEUROLOGICAL: Awake and alert. No obvious cranial nerve deficits. Motor grossly within normal limits. Normal speech. PSYCHIATRIC: Appropriate mood and affect; insight and judgment normal. Data Data Last Documented VS Vital Signs Date Time Temp Pulse Resp B/P (MAP) Pulse Ox O2 Delivery O2 Flow Rate FiO2 10/17/17 13:45 97.8 99 18 124/58 (80) 100 Room Air Orders Orders Us Leg Venous Doppler (10/17/17 ) Ed Discharge Order (10/17/17 15:37) MDM Medical Decision Making Medical Screen Exam Complete: Yes Emergency Medical Condition: Yes Differential Diagnosis Radiculopathy versus DVT versus lumbago versus meralgia paresthetica Narrative Course 62-year-old female presents to the emergency department complaining of right leg and back pain for approximately 2 months. States the pain has been increasing so she came in today. Her pain starts in her lower back and states it radiates to her right leg and occasionally down to the toes. Patient has been using salonpas 3-4 times daily without relief. States ibuprofen upsets her stomach and she was advised not to take narcotics per her primary care physician for pain. She has a history of high blood pressure and apparently low potassium. Patient denies saddle anesthesia, loss of bowel or bladder function, IV drug use, fever, chills, IV drug use. Patient is fairly immobile, denies recent travel or coagulopathy. Patient denies any other cardiac or pulmonary issues. Physical exam- concerning for a DVT secondary to patient's body habitus, symptoms. She also has symptoms of radiculopathy. No midline tenderness of the back Ultrasound negative for DVT Patient will be discharged with Medrol Dosepak for lumbago with radiculopathy Advised patient to follow up with her primary care physician within a couple of days Return for worsening symptoms Diagnosis Primary Impression: Lumbago with sciatica Qualified Codes: M54.41 - Lumbago with sciatica, right side Referrals: Primary Care Physician Additional Instructions: Follow-up with her primary care physician within 2 days. Take medications as prescribed If your symptoms persist or worsen return to the emergency department Scripts Methylprednisolone Dosepak (Medrol Dosepak) 4 Mg Dspk 4 MG PO DIRECTED, #1 DSPK 0 Refills Per Pharmacist direction Prov: Cathleen Jaime DO 10/17/17 Disposition: 01 DISCHARGE HOME Condition: Stable Lora Perez Oct 17, 2017 14:33
--- NOTE | 2017-10-17 15:20 | RADRPT ---
EXAM DATE/TIME: 10/17/2017 14:55 [facility] COMPARISON: No previous studies available for comparison. INDICATIONS : Right leg swelling/pain. MEDICAL HISTORY : Hypercholesterolemia. Hypertension. Partial upper dentures. Ulcer. Heartburn. Arthritis. Osteopor osis. Measles. SURGICAL HISTORY : Tubal ligation. Right knee surgery. ENCOUNTER: Initial ACUITY: 2 months PAIN SCORE: 4/10 LOCATION: Right leg. TECHNIQUE: Venous ultrasound of the leg was performed from the inguinal ligament to the proximal calf. Real-hussein e, color Doppler and spectral tracing, compression and augmentation techniques were used. FINDINGS: There is normal compressibility of the deep venous system from the inguinal region to the proximal ca lf. No echogenic clot is seen in the lumen of the common femoral, femoral, popliteal, and posterior tibial veins. There is a normal response of the venous system to proximal and distal augmentation an d respiration. CONCLUSION: Normal examination. Kasi Mo MD on October 17, 2017 at 15:18 Board Certified Radiologist. This report was verified electronically.
[2017-10-17] MEDS ORDERED: MEDR4PAK PO (15:35)
== END 2017-10-17 15:53 | disposition home or self-care (01) ==
LOC: NEPD 13:40
DX: M54.41 Lumbago with sciatica, right side (principal); M79.604 Pain in right leg; I10 Essential (primary) hypertension; E78.00 Pure hypercholesterolemia, unspecified; Z87.39 Personal history of other diseases of the musculoskeletal system and connective tissue
CPT/HCPCS: 93971; 99284